=== PATIENT | female | born 1945 | race Hispanic/Latino ===

== ENCOUNTER 2017-06-18 14:27 | Outpatient (CLI) | payer BC | END 2017-06-18 14:28 | disposition home or self-care (01) | LOC: BICMAMMO 14:27 | PROVIDERS: ATTEND Family Medicine | DX: Z12.31 Encounter for screening mammogram for malignant neoplasm of breast (principal) | CPT/HCPCS: 77063; 77067 ==

== ENCOUNTER 2019-05-31 13:10 | Inpatient (IN) | payer MEDICARE ==
[~2019-05-31 13:10] MED LIST: Iopamidol 370 76% 100 ML VIAL ONE; Iopamidol 370 76% 50 ML VIAL FS ONE
[2019-05-31] MEDS ORDERED: Aspirin Chewable 81 MG TAB ONE (13:26)
[2019-05-31] MEDS ORDERED: Nitroglycerin 2% Ointment 1 INCH/1 GM Packet ONE (13:26)
[2019-05-31] MEDS ORDERED: Heparin 10,000 UNITS/1 ML VIAL ONE (13:34)
[2019-05-31] MEDS ORDERED: Adenosine 6 MG/2 ML VIAL ONE (13:34)
[2019-05-31] MEDS ORDERED: Verapamil 5 MG/2 ML VIAL ONE (13:34)
[2019-05-31] MEDS ORDERED: Nitroglycerin 100MG/250ML BOT 0 ML ONE (13:34)
[2019-05-31 13:36] LABS: #Eosinphils 0.1 thou/uL (0.0-0.7); #Lymphocytes 1.2 thou/uL (1.20-3.40); #Monocytes 0.4 thou/uL (0.11-0.59); #Neutrophils 5.1 thou/uL (1.40-6.50); %Basophils 0.4 % (0.0-1.0); %Eosinophils 1.1 % (0.0-10.0); %Lymphocytes 17.5 % (21.0-51.0); %Monocytes 6.1 % (0.0-10.0); %Neutrophils 74.8 % (42.0-75.0); Hemoglobin 11.9 g/dL (12.0-16.0); Mean Corpuscular HGB CONC 33.3 g/dL (32.0-36.0); Mean Corpuscular Hemoglobin 31.7 pg (27.0-31.0); Mean Platelet Volume 8.8 fL (7.4-10.4); Platelet Count 208 thou/uL (130-400); RBC Distribution Width 13.2 % (11.5-14.5); Red Blood Cell (RBC) Count 3.75 mill/uL (4.20-5.40); White Blood Cell (WBC) Count 6.8 thou/uL (4.8-10.8)
[2019-05-31] MEDS ORDERED: Ondansetron PF 4 MG/2 ML Vial ONE ×2 (13:36→14:35)
[2019-05-31 13:57] LABS: ALT (SGPT) 11 U/L (8-55); AST (SGOT) 23 U/L (5-34); Albumin 4.5 g/dL (3.4-4.8); Alkaline Phosphatase 75 U/L (40-110); Anion Gap 16 mmol/L (10-20); BUN (Urea Nitrogen) 18 mg/dL (9.8-20.1); Bilirubin, Total 0.5 mg/dL (0.2-1.2); CK (CPK) 85 U/L (29-168); Calc. Creatinine Clearance 0 mL/min (70-130); Carbon Dioxide 25 mmol/L (23-31); Chloride 102 mmol/L (98-107); Estimated GFR-MDRD 39; Globulin 4.1 g/dL (2.4-3.5); Glucose 132 mg/dL (83-110); Lipase 33 U/L (8-78); Potassium 3.6 mmol/L (3.5-5.1); Protein, Total 8.6 g/dL (6.0-8.3); Sodium 139 mmol/L (136-145)
[2019-05-31] MEDS ORDERED: Fentanyl 100 MCG/2 ML VIAL ONE (13:59)
[2019-05-31] MEDS ORDERED: Midazolam HCl 2 mg/2 ml Vial ONE (13:59)
[2019-05-31 14:19] LABS: CKMB 3.8 ng/mL (0-6.6)
[2019-05-31] MEDS ORDERED: Furosemide 40 MG/4 ML VIAL ONE (14:22)
[2019-05-31] MEDS ORDERED: Aggrastat 12.5 MG/250 ML 250 ML ONE (14:35)
[2019-05-31] MEDS ORDERED: Acetaminophen/Codeine 30-300mg Tablet PO PRN (14:53)
[2019-05-31] MEDS ORDERED: Milk Of Magnesia 30 ML UDCUP PO PRN (14:53)
[2019-05-31] MEDS ORDERED: Aggrastat 12.5 MG/250 ML 250 ML IVPB SCH ×2 (15:00)
[2019-05-31] MEDS ORDERED: Sodium Chloride 0.9% 1,000 ML IV SCH (15:00)
[2019-05-31] MEDS ORDERED: Heparin 10,000 UNITS/ 10 ML VIAL ONE (15:33)
[2019-05-31] MEDS ORDERED: Metoprolol Tartrate 5 MG/5 ML VIAL ONE (15:33)
[2019-05-31] MEDS ORDERED: Nitroglycerin 50 MG/250 ML BOT ONE (15:33)
--- NOTE | 2019-05-31 15:58 | CON ---
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 She was taken to the prosthetic lab technician by her chief digital media officer and is now in the ICU. She is on nitroglycerin drip . No chest pain right now. Has shortness of breath. Nonsmoker. Nondrinker. Daughter is at the bedside. PAST SURGICAL HISTORY: In 2013, underwent left hip arthroplasty. PAST MEDICAL HISTORY: Pertinent mainly for diabetes, arthritis, and hypertension. CHRONIC MEDICATIONS: 1. Tramadol. 2. Glucophage 1000 twice a day. 3. Hydrocodone. 4. . 5. Lipitor. ALLERGIES: NONE. SOCIAL HISTORY: Tobacco none. Presently retired. REVIEW OF SYSTEMS: Ten-point negative. PHYSICAL EXAMINATION: VITAL SIGNS: Temperature 98, pulse 70, respiratory rate 18, saturations 90% on 2 L, and blood pressure 190/51. CHEST: Decreased breath sounds. No wheezing. CARDIAC: Normal S1-S2. No gallops. ABDOMEN: No masses. DIAGNOSTIC DATA: Creatinine 1.32. BNP 471. I do not see any x-ray at baseline, one will be ordered. IMPRESSION: 1. Status post acute coronary syndrome, cardiac cath, status post stent. 2. Diabetes. 3. Azotemia. 4. Cholesterol. PLAN: Pulmonary will follow while in the ICU. Continue cardiac care as per chief digital media officer. Consultation note, 70 minutes, 50% direct patient care. Job ID: [id number]
[2019-05-31 16:57] LABS: Troponin I 1.928 ng/mL (< 0.028)
[2019-05-31] MEDS ORDERED: Carvedilol 3.125 MG TAB PO SCH (17:00)
[2019-05-31] MEDS ORDERED: Communication Order-Pharmacy FS ONE (17:34)
--- NOTE | 2019-05-31 17:57 | RAD ---
EXAM: CHEST ONE VIEW HISTORY: Preoperative evaluation prior to CABG. Chest pain. COMPARISON: None FINDINGS: Cardiac silhouette is magnified by projection and slight patient rotation. Pulmonary vasculature is w ithin normal limits. No consolidation or pleural fluid is seen. There is evidence of prior granulomatous disease. Vascular seen in thoracic aorta. Suggestion of a partially calcified mass over lying the left axillary region. This may represent a large partially calcified lymph node, this cannot be further evaluated on this exam. Degenerative changes are seen in the spine. No other findin gs. IMPRESSION: 1. Partially calcified mass left axillary region. Further evaluation with CT scan thorax is recommend ed. 2. No acute cardiopulmonary process.
[2019-05-31] MEDS ORDERED: Nitroglycerin 50 MG/250 ML BOT 250 ML IVPB SCH (18:15)
[2019-05-31] MEDS ORDERED: Atorvastatin Calcium 40 MG TAB PO SCH (21:00)
[2019-05-31] MEDS ORDERED: Docusate 100 MG CAP PO SCH (21:00)
--- NOTE | 2019-05-31 21:05 | CON ---
DATE OF CONSULTATION: 05/31/2019 REQUESTING PHYSICIAN: Dr. Infante. CHIEF COMPLAINT: Chest tightness and shortness of breath. HISTORY OF PRESENT ILLNESS: The patient is a 74-year-old diabetic woman who has been having some occasional episodes of dyspnea on exertion for about 2 or 3 months. Her primary care physician had arranged for an evaluation by Cardiology and in fact today, she had an appointment to see Dr. Infante when she realized that she felt profoundly tired, had chest tightness, shortness of breath, and some nausea. An EKG upon arrival in his office showed a left bundle branch block, which by report was a new finding for her and she was referred directly to the emergency room. She was a little tachycardic and was hypertensive. She had an elevated troponin and BNP, and she was given IV Lopressor, IV nitroglycerin, aspirin, and Zofran in the emergency room and in the brick and blocker aid labor, was given IV Lasix. Her cardiac catheterization demonstrated severe 3-vessel coronary artery disease with decreased LV function. She had some chest discomfort during the catheterization, but she now feels much better and her shortness of breath has resolved. PAST MEDICAL HISTORY: Significant for her hypertension and diabetes. HOME MEDICATIONS: 1. Metformin 1000 mg b.i.d. 2. Lipitor 10 mg at bedtime. 3. Adult aspirin a day. 4. Bisoprolol 5/hydrochlorothiazide 6.25 one p.o. b.i.d. 5. Lactaid and p.r.n. meloxicam and [place] for arthritis that primarily affects her fingers. Currently, she is on: 1. Baby aspirin. 2. Lipitor 40 mg at bedtime. 3. Coreg 3.125 mg b.i.d. 4. Aggrastat drip. 5. Nitroglycerin drip ALLERGIES: SHE DENIES ANY MEDICAL OR FOOD ALLERGIES. FAMILY HISTORY: Significant for multiple first-degree family members with coronary artery disease. She does not recall the age at which her father of heart attack, but does remember that she was a young woman with small children at that time. Her mother of heart disease. She has a sister who recently of heart disease. REVIEW OF SYSTEMS: Negative for any transient eye, speech, facial, or extremity symptoms suggestive of TIA. Negative for any antecedent shortness of breath. Negative for any PND or dependent edema. Positive for some burning and tingling in the soles of her feet. Positive for crampy pain in her calves when she walks. 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 She has never smoked. PHYSICAL EXAMINATION: GENERAL: She is a thin woman, in no distress. VITAL SIGNS: Weight is 123.5 pounds. In the emergency room, her heart rate was 111, and blood pressure 170/100. Currently, her heart rate is 83 and blood pressure 158/55. 2 L nasal cannula O2 saturations of 95% to 100%. HEENT: She has no xanthelasma. NECK: No JVD. She has soft bilateral carotid bruits. HEART: She has regular rate and rhythm without any murmur or gallop. ABDOMEN: Soft and nontender without any masses or bruits. EXTREMITIES: She has palpable but somewhat difficult to appreciate radial pulses bilaterally. She has some deformity of fingers on either hand consistent with arthritis. She has an arterial sheath in place in the right groin. Her left femoral pulse is easily palpable and there is no associated bruit. I was not able to palpate popliteal pulses on either side or posterior tibial pulses on either side. The right dorsalis pedis pulse is palpable, but faint. Her left dorsalis pedis is not palpable. Capillary refill in both feet is around 1.5 seconds. She has some spider type varicosities around the knee, but no bulging varicosities. She has no clubbing, cyanosis, or edema. NEUROLOGIC: Grossly nonfocal. LABORATORY DATA: White count 6.8, hemoglobin 11.9, hematocrit 35.6, platelets 208,000. Sodium 139, potassium 3.6, chloride 102, CO2 of 25, glucose 132, BUN 18, creatinine 1.32 with an estimated GFR of 39, calcium is 10, protein is 8.6, albumin 4.5, bilirubin 0.5, alkaline phosphatase 75, AST 23, ALT 11. Troponin was 0.067 and BNP was 471. EKG shows a left bundle branch block. Her chest x-ray is pending. Her cardiac catheterization shows a right-dominant system with an occluded right coronary that fills from left-sided collaterals with posterior descending and posterolateral branches appearing freely communicate with the distal right coronary. After passing a wire and attempting to angioplasty the right coronary from an antegrade route, there was competitive flow appreciated in the distal right system. The left main is normal. She has 80 or 90% lesion in the proximal LAD that extends just beyond the first septal dairy processing supervisor. The remainder of the LAD appears to be reasonably free of disease. She has lesion in the proximal circumflex with a modest size OM1 and reasonably good-sized OM2 appearing to freely communicate, that circumflex lesion is somewhat hazy, appears to be about 60% to 70% in most shots where it is visualized. Her anterior wall is essentially akinetic. LVEF is probably on the order of around 30% or 35%. LV pressure was 169/11 with an EDP of 29 and aortic pressure on pullback was 167/72 with a mean of 114. IMPRESSION AND RECOMMENDATIONS: Severe three-vessel coronary artery disease with an occluded right coronary stenotic circumflex and a high-grade proximal LAD lesion. She is currently stable. We will plan on coronary artery bypass grafting in the morning. We will turn her Aggrastat off tonight. She is to continue with gentle hydration because of some mild renal insufficiency. We will defer evaluating her carotid bruits for the time being. Job ID: [id number] MTDD
[2019-05-31 21:22] LABS: Hemoglobin A1c 5.8 % (4.0-6.0)
[2019-05-31 21:49] LABS: CKMB 41.4 ng/mL (0-6.6); Troponin I 9.118 ng/mL (< 0.028)
[2019-06-01] MEDS ORDERED: Milk Of Magnesia 30 ML UDCUP PO PRN (02:43)
[2019-06-01] MEDS: Acetaminophen/Codeine 30-300mg Tablet PO PRN ×2 (02:44→08:23)
[2019-06-01 04:15] LABS: #Eosinphils 0.1 thou/uL (0.0-0.7); #Lymphocytes 1.3 thou/uL (1.20-3.40); #Monocytes 0.8 thou/uL (0.11-0.59); #Neutrophils 4.7 thou/uL (1.40-6.50); %Basophils 0.3 % (0.0-1.0); %Eosinophils 1.2 % (0.0-10.0); %Lymphocytes 19.3 % (21.0-51.0); %Monocytes 11.3 % (0.0-10.0); %Neutrophils 67.9 % (42.0-75.0); Hemoglobin 9.6 g/dL (12.0-16.0); Mean Corpuscular HGB CONC 33.5 g/dL (32.0-36.0); Mean Corpuscular Hemoglobin 31.7 pg (27.0-31.0); Mean Corpuscular Volume 94.6 fL (78.0-98.0); Mean Platelet Volume 8.2 fL (7.4-10.4); Platelet Count 176 thou/uL (130-400); RBC Distribution Width 13.2 % (11.5-14.5); Red Blood Cell (RBC) Count 3.01 mill/uL (4.20-5.40); White Blood Cell (WBC) Count 6.9 thou/uL (4.8-10.8)
[2019-06-01 04:36] LABS: ALT (SGPT) 12 U/L (8-55); AST (SGOT) 55 U/L (5-34); Albumin 3.6 g/dL (3.4-4.8); Alkaline Phosphatase 58 U/L (40-110); Anion Gap 11 mmol/L (10-20); BUN (Urea Nitrogen) 15 mg/dL (9.8-20.1); Bilirubin, Total 0.7 mg/dL (0.2-1.2); Calc. Creatinine Clearance 35 mL/min (70-130); Calcium 8.8 mg/dL (7.8-10.44); Carbon Dioxide 26 mmol/L (23-31); Chloride 105 mmol/L (98-107); Estimated GFR-MDRD 46; Globulin 3.3 g/dL (2.4-3.5); Glucose 120 mg/dL (83-110); Potassium 4.1 mmol/L (3.5-5.1); Protein, Total 6.9 g/dL (6.0-8.3); Sodium 138 mmol/L (136-145)
[2019-06-01] MEDS ORDERED: Albumin 5% 0 ML ONE (06:34)
--- NOTE | 2019-06-01 06:45 | RAD ---
CHEST 1 VIEW: Date: 06/01/2019 INDICATION: History of myocardial infarction. COMPARISON: Prior exam dated 05/31/2019. FINDINGS: Calcifications of the soft tissues of left axial region stable appearing. Heart size upper limits of normal. Lungs are clear. No pleural effusion evident. No pneumothorax demonstrated. No acute osseous abnormality noted. IMPRESSION: Stable. POS: BH
[2019-06-01] MEDS ORDERED: Heparin 5,000 UNITS/ML VIAL ONE ×2 (06:58→11:08)
[2019-06-01] MEDS ORDERED: Papaverine 60 MG/2 ML VIAL ONE ×2 (06:58→11:08)
[2019-06-01] MEDS ORDERED: Prevnar 13-Val Conj/PF 0.5 ML SYRINGE IM ONE (08:00)
[2019-06-01] MEDS: Carvedilol 3.125 MG TAB PO SCH ×2 (08:18→19:43)
--- NOTE | 2019-06-01 08:20 | PRG ---
DATE OF SERVICE: 06/01/2019 SUBJECTIVE: This morning, she is in the ICU. No shortness of breath. No pain. X-ray was clear. OBJECTIVE: VITAL SIGNS: Saturations are 100% on room air, pulse 72, blood pressure , and respiratory rate 18. CHEST: No wheezing or crackles. CARDIAC: Normal S1 and S2. No gallops. ABDOMEN: No masses. LABORATORY DATA: H and H are 9 and 28, platelet count normal. Lytes are normal. Creatinine 1.16. ASSESSMENT: 1. Status post myocardial infarction, stent. 2. Diabetes. PLAN: This patient is here for surgery today. Pulmonary will follow while in the ICU. Job ID: [id number]
[2019-06-01] MEDS ORDERED: FLU VACC TS2019-20(65YR UP)/PF 180 MCG/0.5 ML SYRINGE IM ONE (09:00)
[2019-06-01] MEDS ORDERED: Aspirin Chewable 81 MG TAB PO SCH ×2 (09:00)
--- NOTE | 2019-06-01 09:00 | PRG ---
DATE OF SERVICE: 06/01/2019 SUBJECTIVE: Ms. Kwan is doing well. She has not had any recurrent episodes of chest pain since the procedure. Her troponin did increase to 9 with a CK-MB of 45. OBJECTIVE: VITAL SIGNS: Blood pressure 149/66, pulse 85, respirations 20. LUNGS: Clear to auscultation. HEART: Regular rate and rhythm. ABDOMEN: Soft, nontender, nondistended. EXTREMITIES: No edema. PERTINENT LABORATORY DATA: Hemoglobin 9.6. Peak MB of 41. Peak troponin 9. IMPRESSION: 1. Severe coronary artery disease. 2. New left bundle-branch block. 3. Diabetes mellitus. RECOMMENDATIONS: It is unknown whether Ms. Kwan is elevated. Troponin is secondary to an acute insult versus recent PTCA only to a chronic occlusion. I do not feel this was an acute event based on the findings. Given the above, she will proceed with the CV surgery today. Job ID: [id number]
[2019-06-01] MEDS ORDERED: Norepinephrine 4 MG/4 ML VIAL ONE (09:14)
[2019-06-01] MEDS ORDERED: Fentanyl 100 MCG/2 ML VIAL ONE (09:15)
[2019-06-01] MEDS ORDERED: Nitroglycerin 50 MG/250 ML BOT 250 ML ONE (09:15)
[2019-06-01] MEDS ORDERED: CEFAZOLIN 2 GM in Premix Bag 1 BAG IVPB SCH (09:30)
[2019-06-01] MEDS ORDERED: Heparin 10,000 UNITS/1 ML VIAL 30,000 UNITS in Sodium Chloride 0.9% 1,000 ML FS SCH (09:45)
[2019-06-01] MEDS ORDERED: Sodium Chloride 0.9% 10 ML ONE (09:59)
[2019-06-01] MEDS ORDERED: Ketamine 50 MG/ML (10ML VIAL) ONE (10:12)
[2019-06-01] MEDS ORDERED: Midazolam HCl 2 mg/2 ml Vial ONE (10:12)
[2019-06-01] MEDS ORDERED: Insulin Regular 300 UNITS/3 ML VIAL ONE (10:43)
[2019-06-01] MEDS ORDERED: Calcium Chloride 1 GM/10 ML Abboject SYRINGE ONE (11:08)
[2019-06-01] MEDS ORDERED: Aminocaproic Acid 5 GM/20 ML VIAL ONE (11:08)
[2019-06-01] MEDS ORDERED: Cardioplegic Soln 1,000 ML BAG ONE (11:08)
[2019-06-01] MEDS ORDERED: Heparin 30,000 units/30 ml VIAL ONE (11:08)
[2019-06-01] MEDS ORDERED: PHENYLEPHRINE-NS 100 MCG/ML 10 ML SYRINGE ONE ×3 (11:08→16:44)
[2019-06-01] MEDS ORDERED: Lidocaine 2% PF 5 ML VIAL ONE (11:08)
[2019-06-01] MEDS ORDERED: Potassium Chloride 60 MEQ/30 ML VIAL ONE (11:08)
[2019-06-01] MEDS ORDERED: Sodium Bicarb 50 MEQ/50 ML Abboject 8.4% SYRINGE ONE (11:08)
[2019-06-01] MEDS ORDERED: Thrombin 5000 UNITS/5 ML VIAL ONE (11:08)
[2019-06-01] MEDS ORDERED: PROPOFOL 200 MG/20 ML VIAL ONE (11:08)
[2019-06-01] MEDS ORDERED: Dexamethasone 20 MG/5 ML VIAL ONE (11:08)
[2019-06-01] MEDS ORDERED: Rocuronium Bromide 10 MG/ML (10ML VIAL) ONE (11:08)
[2019-06-01] MEDS ORDERED: Albumin 25% 25 GM/100 ML BOT ONE (11:08)
[2019-06-01] MEDS ORDERED: Vecuronium 10 MG VIAL ONE (11:08)
[2019-06-01] MEDS ORDERED: Magnesium Sulfate 1 GM/2 ML VIAL ONE (11:08)
[2019-06-01] MEDS ORDERED: Lidocaine 1% PF 5 ML VIAL ONE ×2 (11:08)
[2019-06-01] MEDS ORDERED: Protamine Sulfate 250 MG/25 ML VIAL ONE (11:08)
[2019-06-01] MEDS ORDERED: Milrinone 10 MG/10 ML VIAL ONE (15:18)
[2019-06-01] MEDS ORDERED: Ondansetron PF 4 MG/2 ML Vial IVP PRN (17:06)
[2019-06-01] MEDS ORDERED: Acetaminophen 325 MG TAB PO PRN (17:06)
[2019-06-01] MEDS ORDERED: niCARdipine 25 MG in Sodium Chloride 0.9% 250 ML 240 ML IVPB PRN (17:06)
[2019-06-01] MEDS ORDERED: Hetastarch 6% 500 ML 500 ML IVPB PRN (17:06)
[2019-06-01] MEDS ORDERED: Guaifenesin DM 100-10/5 ML UDCUP PO PRN (17:06)
[2019-06-01] MEDS ORDERED: Mag-Al 1200 mg/1200 mg/30 ML UDCUP PO PRN (17:06)
[2019-06-01] MEDS ORDERED: Bisacodyl 10 MG SUPP PR PRN (17:06)
[2019-06-01] MEDS ORDERED: Nitroglycerin 50 MG/250 ML BOT 250 ML IVPB PRN (17:06)
[2019-06-01] MEDS ORDERED: Morphine 2 MG/ML SYRINGE SLOW IVP PRN (17:06)
[2019-06-01] MEDS ORDERED: Promethazine HCl 25 MG/ML VIAL IM PRN (17:06)
[2019-06-01] MEDS ORDERED: Potassium Chloride 20 MEQ/100 ML PREMIX BAG IVPB PRN (17:06)
[2019-06-01] MEDS ORDERED: Post-Op Insulin Drip Protocol IVPB ONE (17:06)
[2019-06-01] MEDS ORDERED: Bisacodyl 5 MG TAB PO PRN (17:06)
[2019-06-01] MEDS ORDERED: Norepinephrine 8 MG/0.9% NS 250 ML IVPB PRN (17:06)
[2019-06-01] MEDS ORDERED: Fentanyl 100 MCG/2 ML VIAL SLOW IVP PRN ×2 (17:06)
[2019-06-01 17:08] LABS: Actual Bicarbonate (HCO3a) 19.4 mEq/L (22-28); Base Excess (BEa) -2.8 mEq/L (-2.0 to +3.0); Calcium, Ionized 1.11 mmol/L (1.12-1.30); Carboxyhemoglobin (COHb) 0.5 gm% (0.0-3.0); O2 Tension (PaO2) 218.9 mmHg (> 70.0); Potassium - ABG Lab 3.95 mmol/L (3.70-5.30); pH, Arterial 7.49 (7.35-7.45)
[2019-06-01] MEDS ORDERED: DOPamine 400 MG/D5W 250 ML 250 ML ONE (17:09)
[2019-06-01] MEDS ORDERED: Dextrose 5% in Water 1,000 ML IV PRN (17:15)
[2019-06-01] MEDS ORDERED: HUMULIN R 100 UNITS in Sodium Chloride 0.9% 100 ML IVPB SCH (17:15)
[2019-06-01] MEDS ORDERED: Insulin Regular 300 UNITS/3 ML VIAL SC PRN (17:15)
[2019-06-01] MEDS ORDERED: Dextrose 50% Abboject 50 ML SYRINGE SLOW IVP PRN (17:15)
[2019-06-01 17:21] LABS: INR-International Normal Ratio 1.5; PTT 35.4 SEC (22.9-36.1); Prothrombin Time 17.8 SEC (12.0-14.7)
[2019-06-01 17:22] LABS: CO2 Tension 25.9 mmHg (35.0-45.0)
[2019-06-01 17:23] LABS: ALV-art Gradient 176.525 (0-20); Puncture Site LINE
[2019-06-01] MEDS: Sodium Chloride 0.9% 1,000 ML IV SCH (17:30)
[2019-06-01 17:38] LABS: Anion Gap 12 mmol/L (10-20); BUN (Urea Nitrogen) 11 mg/dL (9.8-20.1); Calc. Creatinine Clearance 49 mL/min (70-130); Calcium 7.7 mg/dL (7.8-10.44); Carbon Dioxide 19 mmol/L (23-31); Chloride 112 mmol/L (98-107); Estimated GFR-MDRD 67; Glucose 125 mg/dL (83-110); Potassium 4.1 mmol/L (3.5-5.1); Sodium 139 mmol/L (136-145)
--- NOTE | 2019-06-01 17:38 | RAD ---
EXAM: CHEST ONE VIEW HISTORY: Post open heart surgery. COMPARISON: 06/01/2019 FINDINGS: Endotracheal tube is noted in place with tip overlying the T4 vertebral body. Right subclavian centra l venous catheter is noted in place with tip overlying region of the right atrium. Mediastinal drains are noted in place. Multiple hall monitor leads overlie the chest. Median sternotomy wires are now seen. The cardiac silhouette and pulmonary vasculature are within normal limits. The lungs are clear. No pl eural effusion or pneumothorax is seen on this exam. The partially calcified masslike structure overlying the left axillary region is again identified. No other interval change from prior study IMPRESSION: 1. Partially calcified masslike structure left axilla. This could potentially represent a large calci fied lymph node versus other calcified mass. Nonemergent CT thorax is recommended for further evaluation. 2. Lines and tubes in place with postsurgical changes related to recent CABG.
[2019-06-01 17:44] LABS: #Eosinphils 0.1 thou/uL (0.0-0.7); #Lymphocytes 0.6 thou/uL (1.20-3.40); #Monocytes 0.6 thou/uL (0.11-0.59); #Neutrophils 7.3 thou/uL (1.40-6.50); %Basophils 0.2 % (0.0-1.0); %Lymphocytes 7.1 % (21.0-51.0); %Monocytes 6.9 % (0.0-10.0); %Neutrophils 84.8 % (42.0-75.0); Hemoglobin 10.7 g/dL (12.0-16.0); Mean Corpuscular HGB CONC 34.7 g/dL (32.0-36.0); Mean Corpuscular Hemoglobin 32.4 pg (27.0-31.0); Mean Corpuscular Volume 93.2 fL (78.0-98.0); Mean Platelet Volume 9.2 fL (7.4-10.4); Platelet Count 84 thou/uL (130-400); Platelet Morphology Comment Appears Decreased; RBC Distribution Width 13.5 % (11.5-14.5); RBC Morphology Normal; Red Blood Cell (RBC) Count 3.32 mill/uL (4.20-5.40); White Blood Cell (WBC) Count 8.6 thou/uL (4.8-10.8)
[2019-06-01] MEDS: hydrALAZINE 20 MG/ML VIAL SLOW IVP PRN (20:36)
--- NOTE | 2019-06-01 20:47 | OP ---
DATE OF PROCEDURE: 06/01/2019 PROCEDURES PERFORMED: Coronary artery bypass grafting x3 with left internal mammary artery to the distal left anterior descending artery and reverse greater saphenous vein graft from aorta to the second obtuse marginal and from the aorta to the right coronary artery. PREOPERATIVE DIAGNOSIS: Coronary artery disease with decreased left ventricular function, status post non-ST elevation myocardial infarction. POSTOPERATIVE DIAGNOSIS: Coronary artery disease with decreased left ventricular function, status post non-ST elevation myocardial infarction. TELEVISION CABINET FINISHER: Sky Clark MD ANESTHESIA: General endotracheal anesthesia. INDICATIONS FOR PROCEDURE: The patient is a 74-year-old diabetic woman with recent onset of dyspnea on exertion, who presented with chest tightness and shortness of breath as well as nausea. She had a new left bundle branch block and mildly elevated troponin on initial blood draw. Cardiac catheterization demonstrated severe 3-vessel coronary artery disease with decreased LV function. She is now taken to the operating room for surgical revascularization. FINDINGS: Pump time 75 minutes. Cross-clamp time 34 minutes. Good quality JESÚS with good flow. Small thin-walled saphenous vein requiring bilateral lower extremity harvest. Distal LAD was about a 1.5 mm vessel. The OM2 was about 2 to 2.5 mm. The RCA was about 2.5 mm. The bypass circuit was primed with 2 units of packed red blood cells due to pre-existing anemia. The pericardium was closed. DESCRIPTION OF PROCEDURE: After informed consent was obtained, the patient was taken to the operating room, placed in supine position on the operating table. After the induction of general anesthesia, the patient's greater saphenous vein in both lower extremities was ultrasonographically mapped and marked. She was placed in Trendelenburg, and right upper chest was prepped and draped in sterile fashion. A triple-lumen central line kit was used to place a right subclavian central line by the Seldinger technique. All 3 ports aspirated and flushed easily. The line was secured with suture and the patient's torso, groins, and lower extremities were prepped and draped in sterile fashion excluding the right groin arterial sheath from the field. An incision was made sharply over the medial aspect of the distal right thigh. Exploration of that wound failed to identify the saphenous vein and it was opted to abandon an endoscopic technique. An incision was made about a handbreadth below the groin on the medial thigh. The saphenous vein was exposed there and appeared to be reasonably good quality vessel. It was then harvested by a skin bridge technique down to just below the most superior incision. The vein seemed small, but much of the vein seemed to be somewhat spastic upon completion of its harvest and preparation for use as a graft. However, it could be seen that most of the vein not only was small, it was very thin-walled and very poorly distensible. The vein from the proximal thigh was roughly 3 mm in size, but not far below that most proximal incision. It did split with even the larger vein only being about 1.5 to 2 mm. An incision was then made on the medial aspect of the upper left thigh. The saphenous vein was exposed there and harvested to the mid thigh and prepared for use as a graft and in this manner to adequately sized an adequate quality segments of vein to use for grafting were obtained. The harvest sites were inspected for hemostasis and closed in layers, the subcutaneous and subcuticular Vicryl. A median sternotomy was performed. The left internal mammary artery was exposed and harvested as a pedicle from the level of the xiphoid to the level of the subclavian vein through an extrapleural exposure. The patient was heparinized. The mammary was ligated and divided distally. There was good flow through the mammary and it dilated nicely with instillation of papaverine solution. The mammary bed was inspected for hemostasis. The medial reflections of the left pleura were mobilized and the mammary bed was inspected for hemostasis. The JESÚS retractor was placed with a Grubbs retractor. The pericardium was opened and marsupialized. There was rather short intrapericardial ascending aorta. The pericardial reflection was taken down. The exposed aorta palpably was soft. A double concentric pursestring of 2-0 Ethibond was placed in the ascending aorta at the base of the arch and a single pursestring was placed in the right atrial appendage. Aortic and venous cannulae were inserted and secured by their pursestrings. Cardiopulmonary bypass was instituted and the patient was systemically cooled. The heart was examined and the vessel to be bypassed was identified. A longitudinal slit was made in the pericardium anterior to the left phrenic nerve, through which, the mammary could be passed. The plane between the aorta and the pulmonary artery was developed. An aortic cross-clamp was applied and cardioplegia was administered through an aortic root needle. When arrest has been achieved, attention was turned to the distal right coronary system. The right coronary was opened at the crux and a saphenous vein was reversed and anastomosed there end-to-side with running 6-0 Prolene suture. The anastomosis was tested by flushing cold cardioplegia down the graft. Attention was then turned to the circumflex system. The OM2 was opened and grafted in a similar fashion. The LAD was then opened, where it emerged on the epicardial surface distally. The mammary was spatulated and anastomosed there end-to-side with running 7-0 Prolene and tacked to the epicardium. The aortic cross-clamp was replaced with a partial occluding clamp and aortotomy was made in the ascending aorta with a scalpel and punch. The right coronary artery graft was anastomosed to the more proximal aortotomy and the OM graft was anastomosed to the more distal aortotomy. A partial occluding clamp was removed because of relatively thin-walled nature of even the best quality vein that had been used for grafting. It was opted to not de-aired the grafts. The bulldogs were removed from them. The anastomoses were inspected for hemostasis and the proximal vein graft anastomoses were marked with small hemoclips. A posterior pericardial drain was brought out through a separate incision and secured with suture. Right atrial and right ventricular temporary epicardial pacing wires were placed. The patient had an underlying sinus bradycardia. AV sequential pacing was begun and the patient was loaded with Primacor with the use of volume and Levophed. The patient was then from cardiopulmonary bypass. The aortic and venous cannulae were removed and the pursestring secured. Protamine was administered. When hemostasis was adequate, an anterior mediastinal drain was placed. The pericardium was easily closed over with running Vicryl. The cut surfaces of the sternum were treated with vancomycin paste and platelet-rich GPS. The sternum was then reapproximated with #7 stainless steel wires. The soft tissues were irrigated and treated with platelet-poor GPS. The fascia was closed over the wires with running #1 Vicryl. The subcutaneous tissue was reapproximated with 2-0 Vicryl. The skin was closed with running 4-0 Vicryl subcuticular suture. The wounds were dressed. The patient was taken to the intensive care unit in stable condition. Job ID: [id number]
[2019-06-01] MEDS ORDERED: Famotidine/PF 20 mg/2ml Vial SLOW IVP SCH (21:00)
[2019-06-01] MEDS: Atorvastatin Calcium 40 MG TAB PO SCH (21:57)
[2019-06-01] MEDS: Docusate 100 MG CAP PO SCH (22:01)
[2019-06-01 22:37] LABS: Hemoglobin 10.6 g/dL (12.0-16.0)
[2019-06-01 22:55] LABS: Potassium 3.7 mmol/L (3.5-5.1)
[2019-06-02 03:41] LABS: #Lymphocytes 0.5 thou/uL (1.20-3.40); #Monocytes 1.1 thou/uL (0.11-0.59); #Neutrophils 6.9 thou/uL (1.40-6.50); %Basophils 0.1 % (0.0-1.0); %Eosinophils 0.1 % (0.0-10.0); %Lymphocytes 5.7 % (21.0-51.0); %Monocytes 12.6 % (0.0-10.0); %Neutrophils 81.4 % (42.0-75.0); Hemoglobin 10.7 g/dL (12.0-16.0); Mean Corpuscular HGB CONC 33.8 g/dL (32.0-36.0); Mean Corpuscular Hemoglobin 31.8 pg (27.0-31.0); Mean Platelet Volume 9.8 fL (7.4-10.4); Platelet Count 90 thou/uL (130-400); RBC Distribution Width 13.9 % (11.5-14.5); Red Blood Cell (RBC) Count 3.36 mill/uL (4.20-5.40); White Blood Cell (WBC) Count 8.5 thou/uL (4.8-10.8)
[2019-06-02 04:02] LABS: Anion Gap 12 mmol/L (10-20); BUN (Urea Nitrogen) 15 mg/dL (9.8-20.1); Calc. Creatinine Clearance 43 mL/min (70-130); Calcium 8.3 mg/dL (7.8-10.44); Carbon Dioxide 21 mmol/L (23-31); Chloride 113 mmol/L (98-107); Estimated GFR-MDRD 48; Glucose 115 mg/dL (83-110); Sodium 142 mmol/L (136-145)
[2019-06-02] MEDS: Sodium Chloride 0.9% 1,000 ML IV SCH ×2 (06:23→21:39)
[2019-06-02] MEDS ORDERED: Dextrose 50% Abboject 50 ML SYRINGE SLOW IVP PRN (07:22)
[2019-06-02] MEDS ORDERED: Dextrose 5% in Water 1,000 ML IV PRN (07:22)
--- NOTE | 2019-06-02 07:49 | RAD ---
Chest one view HISTORY: Heart surgery. Follow-up. COMPARISON: 06/01/2019. FINDINGS: Cardiac silhouette and pulmonary vasculature are unremarkable. Mediastinum is midline with aortic calcification. Lines and tubes are unchanged in position. Mediastinal drains overlie the lower mediastinum. Mild atelectasis left posterior lung base. No evidence of pneumothorax. surveillance system monitor leads overlie the chest. IMPRESSION: Stable postoperative appearance of the chest.
[2019-06-02] MEDS: Furosemide 40 MG/4 ML VIAL SLOW IVP SCH ×2 (07:57→14:59)
[2019-06-02] MEDS: Docusate 100 MG CAP PO SCH ×2 (08:00→21:39)
[2019-06-02] MEDS: Aspirin Chewable 81 MG TAB PO SCH (08:00)
--- NOTE | 2019-06-02 08:29 | PRG ---
DATE OF SERVICE: 06/02/2019 SUBJECTIVE: This morning, she is on the vent post CABG. Awake, responsive. Denies any pain or discomfort. OBJECTIVE: VITAL SIGNS: Temperature 97, blood pressure 140/80, sats 100%, respirations 18. CHEST: Decreased breath sounds. No wheezing. CARDIAC: Normal S1 and S2. No gallops. ABDOMEN: Soft. NEUROLOGIC: She is awake, alert, responsive, moves all 4 extremities. DIAGNOSTIC DATA: Chest x-ray shows slight cephalization, but no obvious infiltrate. LABORATORY DATA: Lab shows white count 8000, platelet count is 90,000. Lytes are normal. Glucose is slightly elevated. IMPRESSION: 1. Status post coronary artery bypass graft. 2. Diabetes. 3. Mild azotemia. PLAN: Wean and extubate comfort care, supportive care, PT. We will follow. One-half hour of critical time. Job ID: [id number]
[2019-06-02] MEDS: hydrALAZINE 20 MG/ML VIAL SLOW IVP PRN (15:50)
[2019-06-02] MEDS ORDERED: Lisinopril 5 MG TAB PO SCH (16:15)
[2019-06-02] MEDS: HYDROcodone/Acetaminophen 5/325 mg Tablet PO PRN (16:52)
[2019-06-02] MEDS: Carvedilol 3.125 MG TAB PO SCH (16:54)
[2019-06-02] MEDS ORDERED: Famotidine/PF 20 mg/2ml Vial SLOW IVP SCH (21:00)
[2019-06-02] MEDS: Atorvastatin Calcium 40 MG TAB PO SCH (21:39)
[2019-06-03 03:57] LABS: #Monocytes 1.3 thou/uL (0.11-0.59); #Neutrophils 7.7 thou/uL (1.40-6.50); %Basophils 0.3 % (0.0-1.0); %Eosinophils 0.1 % (0.0-10.0); %Lymphocytes 10.2 % (21.0-51.0); %Monocytes 13.2 % (0.0-10.0); %Neutrophils 76.2 % (42.0-75.0); Hemoglobin 9.6 g/dL (12.0-16.0); Mean Corpuscular HGB CONC 33.2 g/dL (32.0-36.0); Mean Corpuscular Hemoglobin 31.6 pg (27.0-31.0); Mean Platelet Volume 10.5 fL (7.4-10.4); Platelet Count 101 thou/uL (130-400); RBC Distribution Width 14.2 % (11.5-14.5); Red Blood Cell (RBC) Count 3.04 mill/uL (4.20-5.40); White Blood Cell (WBC) Count 10.1 thou/uL (4.8-10.8)
[2019-06-03 04:16] LABS: Anion Gap 12 mmol/L (10-20); BUN (Urea Nitrogen) 24 mg/dL (9.8-20.1); Calc. Creatinine Clearance 28 mL/min (70-130); Calcium 8.2 mg/dL (7.8-10.44); Carbon Dioxide 24 mmol/L (23-31); Chloride 109 mmol/L (98-107); Estimated GFR-MDRD 30; Glucose 154 mg/dL (83-110); Potassium 3.9 mmol/L (3.5-5.1); Sodium 141 mmol/L (136-145)
--- NOTE | 2019-06-03 07:47 | RAD ---
EXAM: Portable chest PROVIDED CLINICAL HISTORY: Post open heart COMPARISON: 06/02/2019 FINDINGS: Interval extubation. Additional significant interval change with respect to the prior examination is not apparent. IMPRESSION: As above.
[2019-06-03] MEDS: Aspirin Chewable 81 MG TAB PO SCH (08:22)
[2019-06-03] MEDS: Carvedilol 3.125 MG TAB PO SCH (08:22)
[2019-06-03] MEDS: Lisinopril 5 MG TAB PO SCH (08:22)
[2019-06-03] MEDS: Docusate 100 MG CAP PO SCH ×2 (08:22→19:43)
[2019-06-03] MEDS: Sodium Chloride 0.9% 1,000 ML IV SCH (08:23)
--- NOTE | 2019-06-03 08:26 | PRG ---
DATE OF SERVICE: 06/03/2019 SUBJECTIVE: This morning, she is lethargic, but arousable. No pain or shortness of breath. OBJECTIVE: VITAL SIGNS: Sats are 95% on 2 L, pulse 67, respirations 18, and blood pressure is 119/60. CHEST: Decreased breath sounds. No wheezing. CARDIAC: Normal S1 and S2. No gallops. ABDOMEN: No masses. DIAGNOSTIC STUDIES: Creatinine 1.67. X-ray shows a left-sided retrocardiac density effusion. White count 10,000, platelet count is 101. ASSESSMENT: 1. Status post coronary artery bypass graft. 2. Azotemia. 3. Diabetes. PLAN: Continue aggressive PT, supportive care. Pulmonary is going to follow while in the ICU. Job ID: [id number]
[2019-06-03] MEDS: HYDROcodone/Acetaminophen 5/325 mg Tablet PO PRN (13:47)
[2019-06-03] MEDS ORDERED: Bisacodyl 10 MG SUPP PR PRN (15:48)
[2019-06-03] MEDS ORDERED: Bisacodyl 5 MG TAB PO PRN (15:48)
[2019-06-03] MEDS ORDERED: Mag-Al 1200 mg/1200 mg/30 ML UDCUP PO PRN (15:48)
[2019-06-03] MEDS ORDERED: Zolpidem Tartrate 5 MG TAB PO PRN (15:48)
[2019-06-03] MEDS ORDERED: Nitroglycerin 0.4 MG TAB (25 Tab Bottle) SL PRN (15:48)
[2019-06-03] MEDS ORDERED: Artificial Tears 18 DROP/0.9 ML EA EYE PRN (15:48)
[2019-06-03] MEDS ORDERED: Mineral Oil ENEMA PR PRN (15:48)
[2019-06-03] MEDS ORDERED: Guaifenesin DM 100-10/5 ML UDCUP PO PRN (15:48)
[2019-06-03] MEDS ORDERED: diphenhydrAMINE 25 MG CAP PO PRN (15:48)
--- NOTE | 2019-06-03 15:53 | PDOC.CPN ---
- Subjective Date: 06/03/19 Time: 15:51 Interval history: Doing well. No new issues. - Review of Systems General: denies: fever/chills, weight/appetite/sleep changes, night sweats, fatigue Respiratory: denies: cough, congestion, shortness of breath, exercise intolerance Cardiovascular: reports: chest pain Gastrointestinal: denies: nausea, vomiting, diarrhea, constipation, abd pain, GI bleeding Musculoskeletal: reports: pain. denies: tenderness, stiffness, swelling, arthritis/arthralgias Neurological: denies: numbness, syncope, seizure, weakness - Objective Allergies/Adverse Reactions: Allergies Allergy/AdvReac Type Severity Reaction Status Date / Time No Known Allergies Allergy Unverified 04/13/13 11:53 Visit Medications: Current Medications Acetaminophen (Tylenol) 650 mg PO Q6H PRN PRN Reason: Headache/Fever Or Mild Pain Hydrocodone Bitart/Acetaminophen ([place] 5/325) 1 tab PO Q4H PRN PRN Reason: Moderate Pain (4-6) Last Admin: 06/03/19 13:47 Dose: 1 tab Hydrocodone Bitart/Acetaminophen ([place] 5/325) 2 tab PO Q4H PRN PRN Reason: Severe Pain (7-10) Al Hydroxide/Mg Hydroxide (Maalox) 30 ml PO Q4H PRN PRN Reason: Indigestion Al Hydroxide/Mg Hydroxide (Maalox) 30 ml PO Q4H PRN PRN Reason: Indigestion Albuterol/Ipratropium (Duoneb) 3 ml NEB [id number] PRN PRN Reason: SHORTNESS OF BREATH Artificial Tears (Tears Naturale) 0 drop EA EYE PRN PRN PRN Reason: Dry Eyes Aspirin (Aspirin Chewable) 81 mg PO DAILY [facility] Last Admin: 06/03/19 08:22 Dose: 81 mg Atorvastatin Calcium (Lipitor) 40 mg PO HS [facility] Last Admin: 06/02/19 21:39 Dose: 40 mg Bisacodyl (Dulcolax) 10 mg PO Q12H PRN PRN Reason: Constipation Bisacodyl (Dulcolax) 10 mg ME Q12H PRN PRN Reason: Constipation Bisacodyl (Dulcolax) 10 mg PO Q12H PRN PRN Reason: Constipation Bisacodyl (Dulcolax) 10 mg ME Q12H PRN PRN Reason: Constipation Carvedilol (Coreg) 6.25 mg PO BID [facility] Dextrose/Water (Dextrose 50%) 25 gm SLOW IVP PRN PRN PRN Reason: PER HYPOGLYCEMIC PROTOCOL Diphenhydramine HCl (Benadryl) 25 mg PO Q6H PRN PRN Reason: Itching & Insomnia or Juan Pablo Karlo Docusate Sodium (Colace) 100 mg PO BID [facility] Last Admin: 06/03/19 08:22 Dose: 100 mg Fentanyl (Sublimaze) 25 mcg SLOW IVP Q2H PRN PRN Reason: Moderate Pain (4-6) Stop: 06/03/19 16:43 Fentanyl (Sublimaze) 50 mcg SLOW IVP Q2H PRN PRN Reason: Severe Pain (7-10) Stop: 06/03/19 16:43 Furosemide (Lasix) 40 mg PO DAILY [facility] Glucagon (Glucagon) 1 mg SC PRN PRN PRN Reason: PER HYPOGLYCEMIC PROTOCOL Guaifenesin/Dextromethorphan (Robitussin Dm) 15 ml PO Q4H PRN PRN Reason: Cough Guaifenesin/Dextromethorphan (Robitussin Dm) 15 ml PO Q4H PRN PRN Reason: Cough Hydralazine HCl (Apresoline) 10 mg SLOW IVP Q6H PRN PRN Reason: To Maintain SBP< 140mmHG Last Admin: 06/02/19 15:50 Dose: 10 mg Dextrose/Water (D5w) 1,000 mls @ 0 mls/hr IV INF PRN PRN Reason: PRN HYPOGLYCEMIC PROTOCOL Insulin Human Regular (Humulin R) 0 units SC .MODERATE SLIDING SC PRN PRN Reason: Moderate Correctional Scale Lisinopril (Zestril) 5 mg PO DAILY [facility] Last Admin: 06/03/19 08:22 Dose: 5 mg Mineral Oil (Fleet Mineral Oil) 133 ml ME DAILYPRN PRN PRN Reason: Constipation Nitroglycerin (Nitrostat) 0.4 mg SL Q5MIN PRN PRN Reason: Chest Pain Ondansetron HCl (Zofran) 4 mg IVP Q6H PRN PRN Reason: Nausea/Vomiting Last Admin: 06/02/19 00:38 Dose: 4 mg Potassium Chloride (K-Dur) 20 meq PO QAM-WM JO[facility] MARTIN Sodium Chloride (Flush - Normal Saline) 10 ml IVF Q12HR JOSE MARTIN Last Admin: 06/03/19 08:23 Dose: 10 ml Zolpidem Tartrate (Ambien) 5 mg PO HSPRN PRN PRN Reason: Insomnia Vital Signs & Weight: Vital Signs Temp Pulse BP Pulse Ox 06/03/19 12:00 99.5 F 06/03/19 08:22 86 134/67 06/03/19 08:00 98.8 F 100 06/03/19 05:00 98.7 F Admit Weight 2.011 oz Weight 128 lb 4.944 oz - Physical Exam General: alert & oriented x3 HEENT: mucus membranes moist Neck: supple neck Cardiac: regular rate and rhythm Lungs: clear to auscultation Neuro: grossly intact Abdomen: active bowel sounds Extremities: 1+ LE edema Skin: clear Musculoskeletal: no pain - Labs Result Diagrams: 06/03/19 03:04 06/03/19 03:30 Troponin/CKMB CK-MB (CK-2) 41.4 ng/mL (0-6.6) H* 05/31/19 20:57 Troponin I 9.118 ng/mL (< 0.028) H* 05/31/19 20:57 - Telemetry Sinus rhythms and dysrhythmias: sinus rhythm - Assessment/Plan Assessment/Plan: 1. CAD 2. S/p CABG 3. LBBB, new 4. Diabetes. PLAN: - Continue BB/ACEI/Statin/ASA - PT once tolerated.
[2019-06-03] MEDS: Atorvastatin Calcium 40 MG TAB PO SCH (19:43)
[2019-06-03] MEDS: Carvedilol 6.25 MG TAB PO SCH (19:43)
[2019-06-04 04:38] LABS: #Lymphocytes 1.1 thou/uL (1.20-3.40); #Monocytes 0.7 thou/uL (0.11-0.59); #Neutrophils 5.3 thou/uL (1.40-6.50); %Basophils 0.1 % (0.0-1.0); %Eosinophils 0.2 % (0.0-10.0); %Lymphocytes 14.7 % (21.0-51.0); %Monocytes 10.4 % (0.0-10.0); %Neutrophils 74.6 % (42.0-75.0); Hemoglobin 8.3 g/dL (12.0-16.0); Mean Corpuscular HGB CONC 32.9 g/dL (32.0-36.0); Mean Corpuscular Hemoglobin 31.5 pg (27.0-31.0); Mean Corpuscular Volume 95.7 fL (78.0-98.0); Mean Platelet Volume 9.8 fL (7.4-10.4); Platelet Count 84 thou/uL (130-400); RBC Distribution Width 13.7 % (11.5-14.5); Red Blood Cell (RBC) Count 2.64 mill/uL (4.20-5.40); White Blood Cell (WBC) Count 7.1 thou/uL (4.8-10.8)
[2019-06-04 04:56] LABS: Anion Gap 10 mmol/L (10-20); BUN (Urea Nitrogen) 28 mg/dL (9.8-20.1); Calc. Creatinine Clearance 43 mL/min (70-130); Calcium 7.9 mg/dL (7.8-10.44); Carbon Dioxide 24 mmol/L (23-31); Chloride 107 mmol/L (98-107); Estimated GFR-MDRD 51; Glucose 102 mg/dL (83-110); Potassium 3.7 mmol/L (3.5-5.1); Sodium 137 mmol/L (136-145)
[2019-06-04] MEDS: HYDROcodone/Acetaminophen 5/325 mg Tablet PO PRN ×3 (06:21→20:36)
[2019-06-04] MEDS: Aspirin Chewable 81 MG TAB PO SCH (08:22)
--- NOTE | 2019-06-04 08:26 | RAD ---
RADIOGRAPH CHEST 1 VIEW: DATE: 06/04/2019 TIME: 4:10 AM HISTORY: 74-year-old female status post CABG COMPARISON: 06/03/2019 FINDINGS: Right subclavian central line. Sternotomy wires. Bilateral pleural effusions with haziness of underly ing lower lung zones. No pneumothorax. No pulmonary edema. Vertically ascending catheter or tube from abdomen with distal tip at midline lower chest. No interval change. IMPRESSION: 1. No interval change. 2. Bilateral pleural effusions.
[2019-06-04] MEDS: Lisinopril 5 MG TAB PO SCH (08:37)
[2019-06-04] MEDS: Docusate 100 MG CAP PO SCH ×2 (08:37→20:38)
[2019-06-04] MEDS: Carvedilol 6.25 MG TAB PO SCH ×2 (08:37→20:36)
[2019-06-04] MEDS: Furosemide 40 MG TAB PO SCH (08:37)
[2019-06-04] MEDS: Potassium Chloride 20 MEQ TAB PO SCH (08:40)
--- NOTE | 2019-06-04 09:12 | PRG ---
DATE OF SERVICE: 06/04/2019 SUBJECTIVE: This morning, she is awake, alert, and responsive. Sitting on the side of the bed, post CABG. OBJECTIVE: VITAL SIGNS: Temperature 98, pulse 76, blood pressure 117/63, respiratory rate , saturations 98%. GENERAL: Denies pain or discomfort. No shortness of breath. CHEST: No wheezing or crackles. CARDIAC: Normal S1, S2. No gallops. ABDOMEN: No masses. LABORATORY DATA: H and H are low 8 and 25. Otherwise, lytes are normal. IMAGING STUDIES: Chest x-ray shows bilateral pleural effusion. IMPRESSION: Coronary artery bypass graft, bilateral pleural effusion. PLAN: Supportive care, PT. Diuretics as prescribed. We will follow. Job ID: [id number]
--- NOTE | 2019-06-04 16:26 | PDOC.CPN ---
- Subjective Date: 06/04/19 Time: 16:24 Interval history: She is doing better. No BM yet but passing gas. Working with PT. - Review of Systems General: denies: fever/chills, weight/appetite/sleep changes, night sweats, fatigue Respiratory: denies: cough, congestion, shortness of breath, exercise intolerance Cardiovascular: denies: chest pain, palpitation, edema, paroxysmal nocturnal dyspnea, orthopnea Gastrointestinal: denies: nausea, vomiting, diarrhea, constipation, abd pain, GI bleeding Musculoskeletal: reports: pain. denies: tenderness, stiffness, swelling, arthritis/arthralgias Neurological: denies: numbness, syncope, seizure, weakness - Objective Allergies/Adverse Reactions: Allergies Allergy/AdvReac Type Severity Reaction Status Date / Time No Known Allergies Allergy Unverified 04/13/13 11:53 Visit Medications: Current Medications Acetaminophen (Tylenol) 650 mg PO Q6H PRN PRN Reason: Headache/Fever Or Mild Pain Hydrocodone Bitart/Acetaminophen ([place] 5/325) 1 tab PO Q4H PRN PRN Reason: Moderate Pain (4-6) Last Admin: 06/04/19 06:21 Dose: 1 tab Hydrocodone Bitart/Acetaminophen ([place] 5/325) 2 tab PO Q4H PRN PRN Reason: Severe Pain (7-10) Al Hydroxide/Mg Hydroxide (Maalox) 30 ml PO Q4H PRN PRN Reason: Indigestion Al Hydroxide/Mg Hydroxide (Maalox) 30 ml PO Q4H PRN PRN Reason: Indigestion Albuterol/Ipratropium (Duoneb) 3 ml NEB T2MT-IM PRN PRN Reason: SHORTNESS OF BREATH Artificial Tears (Tears Naturale) 0 drop EA EYE PRN PRN PRN Reason: Dry Eyes Aspirin (Aspirin Chewable) 81 mg PO DAILY [facility] Last Admin: 06/04/19 08:22 Dose: 81 mg Atorvastatin Calcium (Lipitor) 40 mg PO HS [facility] Last Admin: 06/03/19 19:43 Dose: 40 mg Bisacodyl (Dulcolax) 10 mg PO Q12H PRN PRN Reason: Constipation Bisacodyl (Dulcolax) 10 mg [place] Q12H PRN PRN Reason: Constipation Bisacodyl (Dulcolax) 10 mg PO Q12H PRN PRN Reason: Constipation Bisacodyl (Dulcolax) 10 mg NC Q12H PRN PRN Reason: Constipation Carvedilol (Coreg) 6.25 mg PO BID [facility] Last Admin: 06/04/19 08:37 Dose: 6.25 mg Dextrose/Water (Dextrose 50%) 25 gm SLOW IVP PRN PRN PRN Reason: PER HYPOGLYCEMIC PROTOCOL Diphenhydramine HCl (Benadryl) 25 mg PO Q6H PRN PRN Reason: Itching & Insomnia or Juan Pablo Karlo Docusate Sodium (Colace) 100 mg PO BID [facility] Last Admin: 06/04/19 08:37 Dose: 100 mg Furosemide (Lasix) 40 mg PO DAILY [facility] Last Admin: 06/04/19 08:37 Dose: 40 mg Glucagon (Glucagon) 1 mg SC PRN PRN PRN Reason: PER HYPOGLYCEMIC PROTOCOL Guaifenesin/Dextromethorphan (Robitussin Dm) 15 ml PO Q4H PRN PRN Reason: Cough Guaifenesin/Dextromethorphan (Robitussin Dm) 15 ml PO Q4H PRN PRN Reason: Cough Hydralazine HCl (Apresoline) 10 mg SLOW IVP Q6H PRN PRN Reason: To Maintain SBP< 140mmHG Last Admin: 06/02/19 15:50 Dose: 10 mg Dextrose/Water (D5w) 1,000 mls @ 0 mls/hr IV INF PRN PRN Reason: PRN HYPOGLYCEMIC PROTOCOL Insulin Human Regular (Humulin R) 0 units SC .MODERATE SLIDING SC PRN PRN Reason: Moderate Correctional Scale Lisinopril (Zestril) 5 mg PO DAILY [facility] Last Admin: 06/04/19 08:37 Dose: 5 mg Mineral Oil (Fleet Mineral Oil) 133 ml NC DAILYPRN PRN PRN Reason: Constipation Nitroglycerin (Nitrostat) 0.4 mg SL Q5MIN PRN PRN Reason: Chest Pain Ondansetron HCl (Zofran) 4 mg IVP Q6H PRN PRN Reason: Nausea/Vomiting Last Admin: 06/02/19 00:38 Dose: 4 mg Potassium Chloride (K-Dur) 20 meq PO QAM[facility] Last Admin: 06/04/19 08:40 Dose: 20 meq Sodium Chloride (Flush - Normal Saline) 10 ml IVF Q12HR JOSE MARTIN Last Admin: 06/04/19 08:22 Dose: 10 ml Zolpidem Tartrate (Ambien) 5 mg PO HSPRN PRN PRN Reason: Insomnia Vital Signs & Weight: Vital Signs Temp Pulse Pulse Pulse BP BP BP 06/04/19 14:05 86 117/63 06/04/19 12:58 72 78 106/54 L 111/56 L 06/04/19 12:00 98.7 F 06/04/19 08:37 86 117/63 06/04/19 08:00 98.8 F Pulse Ox Pulse Ox Pulse Ox 06/04/19 14:05 96 06/04/19 12:58 96 98 06/04/19 12:00 06/04/19 08:37 06/04/19 08:00 100 Admit Weight 2.011 oz Weight 127 lb 13.89 oz - Physical Exam General: alert & oriented x3 HEENT: mucus membranes moist Neck: supple neck Cardiac: regular rate and rhythm Lungs: clear to auscultation Neuro: grossly intact Abdomen: active bowel sounds Extremities: 1+ LE edema Skin: clear Musculoskeletal: no pain - Labs Result Diagrams: 06/04/19 04:20 06/04/19 04:20 Troponin/CKMB CK-MB (CK-2) 41.4 ng/mL (0-6.6) H* 05/31/19 20:57 Troponin I 9.118 ng/mL (< 0.028) H* 05/31/19 20:57 - Telemetry Sinus rhythms and dysrhythmias: sinus rhythm - Assessment/Plan Assessment/Plan: 1. CAD 2. S/p CABG 3. LBBB, new 4. Diabetes. PLAN: - Continue BB/ACEI/Statin/ASA - Increase PT as tolerated.
[2019-06-04] MEDS: Atorvastatin Calcium 40 MG TAB PO SCH (20:36)
[2019-06-05 04:36] LABS: #Eosinphils 0.1 thou/uL (0.0-0.7); #Lymphocytes 1.3 thou/uL (1.20-3.40); #Monocytes 0.7 thou/uL (0.11-0.59); #Neutrophils 4.7 thou/uL (1.40-6.50); %Basophils 0.1 % (0.0-1.0); %Lymphocytes 18.3 % (21.0-51.0); %Monocytes 10.9 % (0.0-10.0); %Neutrophils 68.7 % (42.0-75.0); Hemoglobin 8.9 g/dL (12.0-16.0); Mean Corpuscular Hemoglobin 32.2 pg (27.0-31.0); Mean Corpuscular Volume 94.7 fL (78.0-98.0); Mean Platelet Volume 9.9 fL (7.4-10.4); Platelet Count 116 thou/uL (130-400); RBC Distribution Width 13.4 % (11.5-14.5); Red Blood Cell (RBC) Count 2.75 mill/uL (4.20-5.40); White Blood Cell (WBC) Count 6.8 thou/uL (4.8-10.8)
[2019-06-05 04:58] LABS: Anion Gap 10 mmol/L (10-20); BUN (Urea Nitrogen) 33 mg/dL (9.8-20.1); Calc. Creatinine Clearance 43 mL/min (70-130); Calcium 8.2 mg/dL (7.8-10.44); Carbon Dioxide 26 mmol/L (23-31); Chloride 101 mmol/L (98-107); Estimated GFR-MDRD 51; Glucose 97 mg/dL (83-110); Potassium 3.7 mmol/L (3.5-5.1); Sodium 133 mmol/L (136-145)
--- NOTE | 2019-06-05 08:47 | RAD ---
CHEST 1 VIEW: HISTORY: Status post coronary artery bypass graft. COMPARISON: 06/04/2019. FINDINGS: Right-sided central line. Monitor leads overlie the chest. Focal area of calcification changes in t he region of the left axilla. Mild vascular congestion and small pleural effusions. IMPRESSION: Stable chest. No significant new process. POS: [facility]
--- NOTE | 2019-06-05 08:57 | PRG ---
DATE OF SERVICE: 06/05/2019 SUBJECTIVE: This morning, she is doing well. Less short of breath. Unfortunately, chest x-ray still shows significant pleural effusion, left greater than right. She has remained asymptomatic. OBJECTIVE: VITAL SIGNS: Temperature 98, pulse 76, blood pressure 123/60, saturations are 98% on room air, and respirations 18. CHEST: No wheezing or crackles. CARDIAC: Normal S1 and S2. No gallops. ABDOMEN: No masses. LABORATORY DATA: White count of 6000, H and H of 8 and 26. Glucose 117. ASSESSMENT: 1. Status post coronary artery bypass grafting. 2. Bilateral pleural effusion. 3. Diabetes. PLAN: Continue slow diuretics, PT, supportive care. We will follow. Job ID: [id number]
[2019-06-05] MEDS: Aspirin Chewable 81 MG TAB PO SCH (09:23)
[2019-06-05] MEDS: Potassium Chloride 20 MEQ TAB PO SCH (09:23)
[2019-06-05] MEDS: Furosemide 40 MG TAB PO SCH (09:23)
[2019-06-05] MEDS: Lisinopril 5 MG TAB PO SCH ×2 (09:23→20:19)
[2019-06-05] MEDS: Carvedilol 6.25 MG TAB PO SCH ×2 (09:24→20:19)
[2019-06-05] MEDS: Docusate 100 MG CAP PO SCH ×2 (09:24→20:19)
[2019-06-05] MEDS: HYDROcodone/Acetaminophen 5/325 mg Tablet PO PRN (09:30)
[2019-06-05] MEDS: Insulin Regular 300 UNITS/3 ML VIAL SC PRN (12:02)
[2019-06-05] MEDS: Atorvastatin Calcium 40 MG TAB PO SCH (20:19)
[2019-06-06] MEDS: Potassium Chloride 20 MEQ TAB PO SCH (08:30)
[2019-06-06] MEDS: Lisinopril 5 MG TAB PO SCH ×2 (08:30→20:38)
--- NOTE | 2019-06-06 08:31 | PRG ---
DATE OF SERVICE: 06/06/2019 SUBJECTIVE: She remains in the ICU without any distress. OBJECTIVE: VITAL SIGNS: Temperature 98, pulse 74, blood pressure 116/55, saturations on room air, respiratory rate 20. Her I's and O's have been negative. CHEST: Decreased breath sounds. No wheezing. CARDIAC: Normal S1 and S2. No gallops. ABDOMEN: No masses. ASSESSMENT: Coronary artery bypass graft, bilateral pleural effusion, congestive heart failure, diabetes. PLAN: Continue aggressive PT, supportive care, and follow while in the ICU. Job ID: [id number]
[2019-06-06] MEDS: Carvedilol 6.25 MG TAB PO SCH ×2 (08:32→20:38)
[2019-06-06] MEDS: Aspirin Chewable 81 MG TAB PO SCH (08:32)
[2019-06-06] MEDS: Docusate 100 MG CAP PO SCH ×2 (08:33→20:38)
[2019-06-06] MEDS: Furosemide 40 MG TAB PO SCH (08:33)
[2019-06-06] MEDS: HYDROcodone/Acetaminophen 5/325 mg Tablet PO PRN (08:56)
[2019-06-06] MEDS: Atorvastatin Calcium 40 MG TAB PO SCH (20:38)
[2019-06-07] MEDS: Carvedilol 6.25 MG TAB PO SCH ×2 (09:07→20:34)
[2019-06-07] MEDS: Potassium Chloride 20 MEQ TAB PO SCH (09:07)
[2019-06-07] MEDS: Aspirin Chewable 81 MG TAB PO SCH (09:07)
[2019-06-07] MEDS: Docusate 100 MG CAP PO SCH ×2 (09:08→20:33)
[2019-06-07] MEDS: Lisinopril 5 MG TAB PO SCH ×2 (09:08→20:35)
[2019-06-07] MEDS: Furosemide 40 MG TAB PO SCH (09:08)
--- NOTE | 2019-06-07 09:46 | PRG ---
DATE OF SERVICE: SUBJECTIVE: This morning, walking in the escobar. No shortness of breath. OBJECTIVE: VITAL SIGNS: Temperature 98, pulse 118, sats are 90% on room air, blood pressure 137/63. CHEST: No wheezing or crackles. CARDIAC: Normal S1, S2. No gallops. ABDOMEN: No masses. IMPRESSION: Status post CABG, CHF, respiratory failure. PLAN: Pulmonary husain, she is much improved. Continue cardiac care. Pulmonary will follow at a distance. Please call if needed. Job ID: [id number]
[2019-06-07] MEDS: HYDROcodone/Acetaminophen 5/325 mg Tablet PO PRN (15:20)
[2019-06-07] MEDS: Insulin Regular 300 UNITS/3 ML VIAL SC PRN (18:23)
[2019-06-07] MEDS: Atorvastatin Calcium 40 MG TAB PO SCH (20:33)
[2019-06-08] MEDS: HYDROcodone/Acetaminophen 5/325 mg Tablet PO PRN ×2 (09:02→18:15)
[2019-06-08] MEDS: Docusate 100 MG CAP PO SCH ×2 (09:03→20:23)
[2019-06-08] MEDS: Potassium Chloride 20 MEQ TAB PO SCH (09:03)
[2019-06-08] MEDS: Carvedilol 6.25 MG TAB PO SCH ×2 (09:03→20:23)
[2019-06-08] MEDS: Aspirin Chewable 81 MG TAB PO SCH (09:03)
[2019-06-08] MEDS: Furosemide 40 MG TAB PO SCH (09:04)
[2019-06-08] MEDS: Lisinopril 5 MG TAB PO SCH ×2 (09:04→20:25)
--- NOTE | 2019-06-08 11:16 | RAD ---
XR Chest Pa Lat STANDARD HISTORY: Post CABG, edema COMPARISON: 06/15/2019 FINDINGS: Changes of median sternotomy are again seen. There is been interval removal of the right-si ded central venous catheter. There is a small left pleural effusion with adjacent atelectatic change. Focal calcification in the left axilla is again noted. No pneumothoraces are seen.
[2019-06-08 13:41] VITALS: BMI 21.4
--- NOTE | 2019-06-08 15:22 | PRG ---
DATE OF SERVICE: 06/08/2019 SUBJECTIVE: Ms. Kwan is doing well. She was ambulating with a walker. No current complaints. OBJECTIVE: VITAL SIGNS: Blood pressure 119/57, pulse 72, temperature 97.8. LUNGS: Clear to auscultation. HEART: Regular rate and rhythm. ABDOMEN: Soft, nontender, nondistended. EXTREMITIES: No edema. PERTINENT LABORATORY DATA: Hemoglobin 8.9. IMPRESSION: 1. Severe 3-vessel disease. 2. Myocardial infarction. 3. Left bundle-branch block. 4. Cardiomyopathy. 5. Status post bypass surgery. RECOMMENDATIONS: Continue aspirin and Lipitor in addition to carvedilol. The patient on low-dose Lasix. Recommend ZOLL LifeVest given LVEF of 30% to 35%. Discussed with the patient. She is amenable. We will also recommend continuing lisinopril. Once she has LifeVest, it will be okay from my standpoint to discharge home with close outpatient followup. Job ID: [id number]
--- NOTE | 2019-06-08 19:34 | EKG ---
Test Reason : PREOP Blood Pressure : / mmHG Vent. Rate : 081 BPM Atrial Rate : 081 BPM P-R Int : 162 ms QRS Dur : 134 ms QT Int : 470 ms P-R-T Axes : 065 -04 138 degrees QTc Int : 545 ms Normal sinus rhythm Left bundle branch block Abnormal ECG When compared with ECG of 31-MAY-2019 13:18, (Unconfirmed) ST less depressed in Lateral leads T wave inversion less evident in Lateral leads Confirmed by DR. Kat ERICKSON ([id number]) on 06/08/2019 7:34:02 PM Referred By: IMTIAZ Confirmed By:DR. Kat ERICKSON
[2019-06-08] MEDS: Atorvastatin Calcium 40 MG TAB PO SCH (20:24)
[2019-06-09 05:15] LABS: Anion Gap 13 mmol/L (10-20); BUN (Urea Nitrogen) 34 mg/dL (9.8-20.1); Calc. Creatinine Clearance 34 mL/min (70-130); Carbon Dioxide 27 mmol/L (23-31); Chloride 96 mmol/L (98-107); Estimated GFR-MDRD 39; Glucose 104 mg/dL (83-110); Potassium 4.4 mmol/L (3.5-5.1); Sodium 132 mmol/L (136-145)
[2019-06-09] MEDS: Furosemide 40 MG TAB PO SCH (08:24)
[2019-06-09] MEDS: Carvedilol 6.25 MG TAB PO SCH ×2 (08:24→20:10)
[2019-06-09] MEDS: Potassium Chloride 20 MEQ TAB PO SCH (08:24)
[2019-06-09] MEDS: Aspirin Chewable 81 MG TAB PO SCH (08:25)
[2019-06-09] MEDS: Lisinopril 5 MG TAB PO SCH ×2 (08:25→20:09)
[2019-06-09] MEDS: Docusate 100 MG CAP PO SCH ×2 (08:25→20:10)
[2019-06-09] MEDS: HYDROcodone/Acetaminophen 5/325 mg Tablet PO PRN (08:49)
--- NOTE | 2019-06-09 11:49 | PQF ---
CLINICAL DOCUMENTATION IMPROVEMENT CLARIFICATION FORM: ICD-10 Updated PLEASE DO AN ADDENDUM TO THE PROGRESS NOTE WITH ANY DOCUMENTATION UPDATES OR ADDITIONS AND CARRY THROUGH TO DC SUMMARY. THANK YOU. DATE: 06/09/19 ATTN: DR. KITCHEN Please exercise your independent, professional judgment in responding to the clarification form. Clinical indicators are provided on the bottom of this form for your review Please check appropriate box(s): HEART FAILURE: A. ACUITY [ ] Acute [ ] Acute on Chronic [ ] Chronic B. TYPE [ ] Systolic / HFrEF [ ] Diastolic / HFpEF [ ] Combined Systolic / Diastolic [ ] Hypertensive Heart and Kidney disease [ ] Hypertensive Heart Disease [ ] Hypertensive Kidney Disease [ ] Other diagnosis [ ] Unable to determine In addition, please specify: Present on Admission (POA): [ ] Yes [ ] No [ ] Unable to determine For continuity of documentation, please document condition throughout progress notes and discharge summary. Thank You. CLINICAL INDICATORS - SIGNS / SYMPTOMS / LABS / RESULTS AND LOCATION IN EMR PROGRESS NOTE 06/05 (PULMONARY): "CONGESTIVE HEART FAILURE" PROGRESS NOTE 06/07 (CARDIOLOGY): "LIFEVEST GIVEN LVEF 30-35%" PROGRESS NOTE 06/04 (CARDIOLOGY): "CHEST XRAY STILL SHOWS SIGNIFICANT PLEURAL EFFUSION" BNP 05/30: 471.0 RISKS: SEVERE CAD (PROGRESS NOTE06/05) MYOCARDIAL INFARCTION (PROGRESS NOTE 06/05) TREATMENT: COREG (06/02-PRESENT) LISINOPRIL (06/04-PRESENT) LASIX (06/03-PRESENT) ECHOCARDIOGRAM / LIFEVEST (This form is maintained as a part of the permanent medical record) 2014 [employer]. All Rights Reserved [email or web address] Office: [phone] MARCELA
[2019-06-09] MEDS: Atorvastatin Calcium 40 MG TAB PO SCH (20:09)
[2019-06-10] MEDS: Potassium Chloride 20 MEQ TAB PO SCH (09:01)
[2019-06-10] MEDS: HYDROcodone/Acetaminophen 5/325 mg Tablet PO PRN (09:01)
[2019-06-10] MEDS: Aspirin Chewable 81 MG TAB PO SCH (09:02)
[2019-06-10] MEDS: Carvedilol 6.25 MG TAB PO SCH (09:03)
[2019-06-10] MEDS: Lisinopril 5 MG TAB PO SCH (09:03)
[2019-06-10] MEDS: Furosemide 40 MG TAB PO SCH (09:03)
[2019-06-10] MEDS: Docusate 100 MG CAP PO SCH (09:03)
--- NOTE | 2019-06-10 09:48 | PDOC.CPN ---
- Subjective Date: 06/09/19 Time: 13:00 Interval history: No overnight events - Review of Systems General: denies: fever/chills, weight/appetite/sleep changes, night sweats, fatigue Respiratory: denies: cough, congestion, shortness of breath, exercise intolerance Cardiovascular: denies: chest pain, palpitation, edema, paroxysmal nocturnal dyspnea, orthopnea Gastrointestinal: denies: nausea, vomiting, diarrhea, constipation, abd pain, GI bleeding Musculoskeletal: denies: pain, tenderness, stiffness, swelling, arthritis/ arthralgias Neurological: denies: numbness, syncope, seizure, weakness - Objective Allergies/Adverse Reactions: Allergies Allergy/AdvReac Type Severity Reaction Status Date / Time No Known Allergies Allergy Unverified 04/13/13 11:53 Visit Medications: Current Medications Acetaminophen (Tylenol) 650 mg PO Q6H PRN PRN Reason: Headache/Fever Or Mild Pain Last Admin: 06/05/19 20:19 Dose: 650 mg Hydrocodone Bitart/Acetaminophen ([place] 5/325) 1 tab PO Q4H PRN PRN Reason: Moderate Pain (4-6) Last Admin: 06/10/19 09:01 Dose: 1 tab Hydrocodone Bitart/Acetaminophen ([place] 5/325) 2 tab PO Q4H PRN PRN Reason: Severe Pain (7-10) Last Admin: 06/08/19 18:15 Dose: 2 tab Al Hydroxide/Mg Hydroxide (Maalox) 30 ml PO Q4H PRN PRN Reason: Indigestion Albuterol/Ipratropium (Duoneb) 3 ml NEB Q0RN-ON PRN PRN Reason: SHORTNESS OF BREATH Artificial Tears (Tears Naturale) 0 drop EA EYE PRN PRN PRN Reason: Dry Eyes Aspirin (Aspirin Chewable) 81 mg PO DAILY [facility] Last Admin: 06/10/19 09:02 Dose: 81 mg Atorvastatin Calcium (Lipitor) 40 mg PO HS [facility] Last Admin: 06/09/19 20:09 Dose: 40 mg Bisacodyl (Dulcolax) 10 mg PO Q12H PRN PRN Reason: Constipation Last Admin: 06/08/19 14:35 Dose: 10 mg Bisacodyl (Dulcolax) 10 mg NE Q12H PRN PRN Reason: Constipation Carvedilol (Coreg) 6.25 mg PO BID [facility] Last Admin: 06/10/19 09:03 Dose: 6.25 mg Dextrose/Water (Dextrose 50%) 25 gm SLOW IVP PRN PRN PRN Reason: PER HYPOGLYCEMIC PROTOCOL Diphenhydramine HCl (Benadryl) 25 mg PO Q6H PRN PRN Reason: Itching & Insomnia or Juan Pablo Karlo Docusate Sodium (Colace) 100 mg PO BID [facility] Last Admin: 06/10/19 09:03 Dose: 100 mg Furosemide (Lasix) 40 mg PO DAILY [facility] Last Admin: 06/10/19 09:03 Dose: 40 mg Glucagon (Glucagon) 1 mg SC PRN PRN PRN Reason: PER HYPOGLYCEMIC PROTOCOL Guaifenesin/Dextromethorphan (Robitussin Dm) 15 ml PO Q4H PRN PRN Reason: Cough Hydralazine HCl (Apresoline) 10 mg SLOW IVP Q6H PRN PRN Reason: To Maintain SBP< 140mmHG Last Admin: 06/02/19 15:50 Dose: 10 mg Dextrose/Water (D5w) 1,000 mls @ 0 mls/hr IV INF PRN PRN Reason: PRN HYPOGLYCEMIC PROTOCOL Insulin Human Regular (Humulin R) 0 units SC .MODERATE SLIDING SC PRN PRN Reason: Moderate Correctional Scale Last Admin: 06/07/19 18:23 Dose: 2 unit Lisinopril (Zestril) 5 mg PO BID [facility] Last Admin: 06/10/19 09:03 Dose: 5 mg Mineral Oil (Fleet Mineral Oil) 133 ml NE DAILYPRN PRN PRN Reason: Constipation Nitroglycerin (Nitrostat) 0.4 mg SL Q5MIN PRN PRN Reason: Chest Pain Ondansetron HCl (Zofran) 4 mg IVP Q6H PRN PRN Reason: Nausea/Vomiting Last Admin: 06/02/19 00:38 Dose: 4 mg Potassium Chloride (K-Dur) 20 meq PO QAM-WM [facility] Last Admin: 06/10/19 09:01 Dose: 20 meq Sodium Chloride (Flush - Normal Saline) 10 ml IVF Q12HR [facility] Last Admin: 06/10/19 09:03 Dose: 10 ml Zolpidem Tartrate (Ambien) 5 mg PO HSPRN PRN PRN Reason: Insomnia Vital Signs & Weight: Vital Signs Temp Pulse Resp BP Pulse Ox 06/10/19 08:08 98.6 F 66 16 120/56 L 97 06/10/19 08:03 97 06/10/19 05:20 98.4 F 74 16 117/55 L 99 06/10/19 04:19 98 Admit Weight 113 lb 1.554 oz Weight 129 lb 2 oz - Physical Exam General: alert & oriented x3, appears well HEENT: mucus membranes moist Neck: supple neck Cardiac: regular rate and rhythm Lungs: other (clear, decreased BS LLL) Neuro: negative: cranial nerve 2-12 intact, grossly intact, motor function intact, sensory function intact, negative rhomberg, coordination normal, no lateralizing findings, numbness, tingling, weakness, resting tremor, essential tremor, right babinski reflex, left babinski reflex, other Abdomen: unremarkable, active bowel sounds, non-tender Extremities: no cyanosis Skin: clear Musculoskeletal: normal range of motion - Labs Result Diagrams: 06/05/19 03:34 06/09/19 04:20 Troponin/CKMB CK-MB (CK-2) 41.4 ng/mL (0-6.6) H* 05/31/19 20:57 Troponin I 9.118 ng/mL (< 0.028) H* 05/31/19 20:57 - Assessment/Plan Assessment/Plan: 1. CAD s/p CABG 2. s/p HI 3. LBBB 4. DM-II Continue PT. On ASA, bblocker and statin. Plan for d/c soon.
--- NOTE | 2019-06-10 09:49 | PDOC.CPN ---
- Subjective Date: 06/10/19 Time: 09:30 Interval history: no overnight events. Has been discharged by [facility] - Review of Systems General: denies: fever/chills, weight/appetite/sleep changes, night sweats, fatigue Respiratory: denies: cough, congestion, shortness of breath, exercise intolerance Cardiovascular: denies: chest pain, palpitation, edema, paroxysmal nocturnal dyspnea, orthopnea Gastrointestinal: denies: nausea, vomiting, diarrhea, constipation, abd pain, GI bleeding Musculoskeletal: denies: pain, tenderness, stiffness, swelling, arthritis/ arthralgias Neurological: denies: numbness, syncope, seizure, weakness - Objective Allergies/Adverse Reactions: Allergies Allergy/AdvReac Type Severity Reaction Status Date / Time No Known Allergies Allergy Unverified 04/13/13 11:53 Visit Medications: Current Medications Acetaminophen (Tylenol) 650 mg PO Q6H PRN PRN Reason: Headache/Fever Or Mild Pain Last Admin: 06/05/19 20:19 Dose: 650 mg Hydrocodone Bitart/Acetaminophen ([place] 5/325) 1 tab PO Q4H PRN PRN Reason: Moderate Pain (4-6) Last Admin: 06/10/19 09:01 Dose: 1 tab Hydrocodone Bitart/Acetaminophen ([place] 5/325) 2 tab PO Q4H PRN PRN Reason: Severe Pain (7-10) Last Admin: 06/08/19 18:15 Dose: 2 tab Al Hydroxide/Mg Hydroxide (Maalox) 30 ml PO Q4H PRN PRN Reason: Indigestion Albuterol/Ipratropium (Duoneb) 3 ml NEB [id number] PRN PRN Reason: SHORTNESS OF BREATH Artificial Tears (Tears Naturale) 0 drop EA EYE PRN PRN PRN Reason: Dry Eyes Aspirin (Aspirin Chewable) 81 mg PO DAILY [facility] Last Admin: 06/10/19 09:02 Dose: 81 mg Atorvastatin Calcium (Lipitor) 40 mg PO HS [facility] Last Admin: 06/09/19 20:09 Dose: 40 mg Bisacodyl (Dulcolax) 10 mg PO Q12H PRN PRN Reason: Constipation Last Admin: 06/08/19 14:35 Dose: 10 mg Bisacodyl (Dulcolax) 10 mg WV Q12H PRN PRN Reason: Constipation Carvedilol (Coreg) 6.25 mg PO BID [facility] Last Admin: 06/10/19 09:03 Dose: 6.25 mg Dextrose/Water (Dextrose 50%) 25 gm SLOW IVP PRN PRN PRN Reason: PER HYPOGLYCEMIC PROTOCOL Diphenhydramine HCl (Benadryl) 25 mg PO Q6H PRN PRN Reason: Itching & Insomnia or Juan Pablo Karlo Docusate Sodium (Colace) 100 mg PO BID [facility] Last Admin: 06/10/19 09:03 Dose: 100 mg Furosemide (Lasix) 40 mg PO DAILY [facility] Last Admin: 06/10/19 09:03 Dose: 40 mg Glucagon (Glucagon) 1 mg SC PRN PRN PRN Reason: PER HYPOGLYCEMIC PROTOCOL Guaifenesin/Dextromethorphan (Robitussin Dm) 15 ml PO Q4H PRN PRN Reason: Cough Hydralazine HCl (Apresoline) 10 mg SLOW IVP Q6H PRN PRN Reason: To Maintain SBP< 140mmHG Last Admin: 06/02/19 15:50 Dose: 10 mg Dextrose/Water (D5w) 1,000 mls @ 0 mls/hr IV INF PRN PRN Reason: PRN HYPOGLYCEMIC PROTOCOL Insulin Human Regular (Humulin R) 0 units SC .MODERATE SLIDING SC PRN PRN Reason: Moderate Correctional Scale Last Admin: 06/07/19 18:23 Dose: 2 unit Lisinopril (Zestril) 5 mg PO BID [facility] Last Admin: 06/10/19 09:03 Dose: 5 mg Mineral Oil (Fleet Mineral Oil) 133 ml WV DAILYPRN PRN PRN Reason: Constipation Nitroglycerin (Nitrostat) 0.4 mg SL Q5MIN PRN PRN Reason: Chest Pain Ondansetron HCl (Zofran) 4 mg IVP Q6H PRN PRN Reason: Nausea/Vomiting Last Admin: 06/02/19 00:38 Dose: 4 mg Potassium Chloride (K-Dur) 20 meq PO QAM-WM [facility] Last Admin: 06/10/19 09:01 Dose: 20 meq Sodium Chloride (Flush - Normal Saline) 10 ml IVF Q12HR [facility] Last Admin: 06/10/19 09:03 Dose: 10 ml Zolpidem Tartrate (Ambien) 5 mg PO HSPRN PRN PRN Reason: Insomnia Vital Signs & Weight: Vital Signs Temp Pulse Resp BP Pulse Ox 06/10/19 08:08 98.6 F 66 16 120/56 L 97 06/10/19 08:03 97 06/10/19 05:20 98.4 F 74 16 117/55 L 99 06/10/19 04:19 98 Admit Weight 113 lb 1.554 oz Weight 129 lb 2 oz - Physical Exam General: alert & oriented x3, appears well HEENT: mucus membranes moist Neck: supple neck Cardiac: regular rate and rhythm Lungs: clear to auscultation (decreased BS LLL) Neuro: grossly intact Abdomen: unremarkable, active bowel sounds Extremities: no cyanosis Skin: clear, rash Musculoskeletal: normal range of motion - Labs Result Diagrams: 06/05/19 03:34 06/09/19 04:20 Troponin/CKMB CK-MB (CK-2) 41.4 ng/mL (0-6.6) H* 05/31/19 20:57 Troponin I 9.118 ng/mL (< 0.028) H* 05/31/19 20:57 - Telemetry Sinus rhythms and dysrhythmias: sinus rhythm - Assessment/Plan Assessment/Plan: 1. CAD s/p CABG 2. s/p DC 3. LBBB 4. DM-II Stable. Ok for discharge. F/U in 2 weeks with me.
[2019-06-10 12:37] VITALS: TEMP 97.7
[2019-06-10 14:37] VITALS: BP 124/91
--- NOTE | 2019-06-11 16:47 | DIS ---
DATE OF ADMISSION: 05/31/2019 DATE OF DISCHARGE: 06/10/2019 The patient was admitted on 05/30 with a [id number] ND and underwent cardiac catheterization by Dr. Infante. She was found to have three-vessel disease and the following day was taken to the operating room by Dr. Machuca where she underwent grafting to the LAD, second OM, and right coronary artery. Postoperatively, she progressed satisfactorily. She is noted to have hemoglobin of about 8 g and bilateral pleural effusions. She was seen in consultation by Dr. Lopez, who managed her in the intensive care unit. Due to ejection fraction of 30%, she was supplied with LifeVest to take at home. DISCHARGE MEDICATIONS: She will be discharged today on 1. Coreg 6.25 b.i.d.. 2. Lisinopril 5 b.i.d. 3. Lasix 40 every Wednesday, Wednesday, Wednesday. 4. Potassium 10 mEq every Wednesday, Wednesday, Wednesday. 5. An aspirin. 6. She is to resume her atorvastatin 80 mg daily. She is to receive her prescription for hydrocodone. Discharge and followup instructions were given. Job ID: [id number]
--- NOTE | 2019-06-12 00:23 | PQF ---
BENITA ANDERSON JAMES M MD [id number] CLINICAL DOCUMENTATION CLARIFICATION FORM: POST DISCHARGE Addendum to original discharge summary date: not my patient Late entry note date: __ DATE: 06/12/2019 ATTN: Sky Acevedo Please exercise your independent, professional judgment in responding to the clarification form. Clinical indicators are provided on the bottom of this form for your review In your clinical opinion bases on clinical findings below, can you please further specify Acuity of Respiratory Failure if Please check appropriate box(s): [ ] Acute Respiratory Failure [ ] Acute on Chronic Respiratory Failure [ ] Chronic Respiratory Failure With: [ ] Hypoxia [ ] Hypercapnia [ ] Ruled out Respiratory Failure [ y] Other diagnosis none of the above [ ] Unable to determine In addition, please specify: Present on Admission (POA): [ ] Yes [ y ] No [ ] Unable to determine For continuity of documentation, please document condition throughout progress notes and discharge summary. Thank You. CLINICAL INDICATORS - SIGNS / SYMPTOMS / LABS ABG 05/31 Bicarbonate 19.4, pH 7.49, pCO2 25.9, pO2 218.9, O2 sat calc/Measure 99.2, [id number] 15.7, Base excess -2.8, Hct 32.0, Hgb 11.0. Oxyhemoglobin 98.4 Vital signs 05/31 Temp 98, Pulse 70, Resp rate 18, Saturation 90% Consult p1 05/31 Dr Lopez Presented with chest pain and shortness of breath PN p1 06/03 Dr Lopez Chest x-ray shows bilateral Pleural effusion PN p1 06/06 Dr Lopez s/p CABG, CHF, Respiratory Failure RISK FACTORS Consult p1 05/31 - 74-year-old Consult p1 05/31 - HTN Consult p1 05/31 - DM PN p1 05/31 Myocardiac Infarction s/p PTCA Operative report p1 05/31 CAD s/p CABG PN p1 06/05 Congestive heart failure TREATMENTS: ABG ordered 05/31 Admitted to ICU 05/31 Respiratory panel 05/31 3L of Oxygen Chest X-ray 05/31 Pulmonology Consult 05/31 Aaron Henderson (This form is maintained as a part of the permanent medical record) 2014 [email or web address], [employer]. All Rights Reserved [email or web address]
--- NOTE | 2019-06-16 09:19 | PQF ---
MONICABENITA MACHUCACALEB [id number] CLINICAL DOCUMENTATION CLARIFICATION FORM: POST DISCHARGE Addendum to original discharge summary date: ____ Late entry note date: __ DATE: 06/16/19 ATTN: Dr. Machuca Please exercise your independent, professional judgment in responding to the clarification form. Clinical indicators are provided on the bottom of this form for your review Please check appropriate box(s): [ ] Acute Respiratory Failure: ( ) with Hypoxia ( ) with Hypercapnia [ ] Acute On Chronic Respiratory Failure: [ ] with Hypoxia [ ] with Hypercapnia [ ] Chronic Respiratory Failure only [ ] with Hypoxia [ ] with Hypercapnia [ ] Ruled out Respiratory Failure [ x ] Other diagnosis immediate post-op CABG [ ] Unable to determine In addition, please specify: Present on Admission (POA): [ ] Yes [ x ] No [ ] Unable to determine For continuity of documentation, please document condition throughout progress notes and discharge summary. Thank You. CLINICAL INDICATORS - SIGNS / SYMPTOMS / LABS ABG 05/30-Bicarbonate 19.4, pH 7.49, pCO2 25.9, O2 sat/calc/measure 99.2, O2 content 15.7, Base excsss-2.8, HCT 32.0, HGB 11.0, Oxyhemoglobin 98.4 Vital signs 05/31-Temp 98, Pulse 70, Resp rate 18, Saturation 90% Consult p 1-05/31 Dr. Lopez "Presented with chest pain and shortness of breath" PN p1 06/03 Dr. Lopez "chest x-ray shows bilateral Pleural effusion" PN p1 05/27 Dr Lopez "s/p CABG, CHF, Respiratory Failure RISK FACTORS Consult p1 05/31--74 year old Consult p1 05/31-- Hypertension Consult pt1 05/31--DM PN p1 05/31-- Myocardiac Infarction s/p PTCA Operative report p1 05/31--CAD s/p CABG PN p1 06/05--Congestive heart failure TREATMENTS: ABG ordered 05/31 Admitted to ICU 05/31 Respiratory panel 05/31--3L of Oxygen Chest X-ry 05/31 Pulmonology consult 05/31--Dr. Lopez, Aaron Thank you, Theresa Douglsa, [facility] (This form is maintained as a part of the permanent medical record) 2015 [employer], [employer]. All Rights Reserved Theresa [email or web address] [phone] MTDD
== END 2019-06-10 15:46 | disposition home or self-care (01) | DRG 232 ==
LOC: ERS 13:10 → CCU 15:00 → 2NO 06-06 19:27
PROVIDERS: ADMIT Internal Medicine Cardiovascular Disease; ATTEND Internal Medicine Cardiovascular Disease
PROC: 02703ZZ Dilation of Coronary Artery, One Artery, Percutaneous Approach (ICD-10-PCS; 2019-05-31)
PROC: 4A023N7 Measurement of Cardiac Sampling and Pressure, Left Heart, Percutaneous Approach (ICD-10-PCS; 2019-05-31)
PROC: B2111ZZ Fluoroscopy of Multiple Coronary Arteries using Low Osmolar Contrast (ICD-10-PCS; 2019-05-31)
PROC: 3E033PZ Introduction of Platelet Inhibitor into Peripheral Vein, Percutaneous Approach (ICD-10-PCS; 2019-05-31)
PROC: 021109W Bypass Coronary Artery, Two Arteries from Aorta with Autologous Venous Tissue, Open Approach (ICD-10-PCS; principal; 2019-06-01)
PROC: 02100Z9 Bypass Coronary Artery, One Artery from Left Internal Mammary, Open Approach (ICD-10-PCS; 2019-06-01)
PROC: 06BP4ZZ Excision of Right Saphenous Vein, Percutaneous Endoscopic Approach (ICD-10-PCS; 2019-06-01)
PROC: 5A1221Z Performance of Cardiac Output, Continuous (ICD-10-PCS; 2019-06-01)
PROC: 30233N1 Transfusion of Nonautologous Red Blood Cells into Peripheral Vein, Percutaneous Approach (ICD-10-PCS; 2019-06-01)
DX: I21.4 Non-ST elevation (NSTEMI) myocardial infarction (principal); I42.9 Cardiomyopathy, unspecified; E11.9 Type 2 diabetes mellitus without complications; M19.90 Unspecified osteoarthritis, unspecified site; I25.10 Atherosclerotic heart disease of native coronary artery without angina pectoris; I44.7 Left bundle-branch block, unspecified; Z96.642 Presence of left artificial hip joint; I50.9 Heart failure, unspecified; I11.0 Hypertensive heart disease with heart failure; Z79.84 Long term (current) use of oral hypoglycemic drugs; Z79.899 Other long term (current) drug therapy; Z79.82 Long term (current) use of aspirin; Z28.21 Immunization not carried out because of patient refusal
CPT/HCPCS: 36415; 36416; 36430; 71045; 71046; 76942; 80048; 80053; 82550; 82553; 82805; 83036; 83690; 83880; 84484; 85025; 85347; 85379; 85610; 85730; 86850; 86900; 86901; 92920; 93005; 93010; 93306; 93458; 93798; 94002; 94003; 94150; 96374; 96375; 99152; 99153; C1725; C1769; C1887; J0153; J0360; J1100; J1265; J1644; J1815; J1940; J2001; J2250; J2260; J2270; J2405; J2440; J2550; J2704; J2720; J3010; J3246; J3370; J3475; J3480; J3490; P9016; P9045; P9047; Q9967; S0017; S0028

== ENCOUNTER 2020-01-04 07:28 | Outpatient (CLI) | payer MEDICARE, OTHER ==
--- NOTE | 2020-01-04 11:06 | RAD ---
2 VIEW CHEST: Date: 01/04/2020 HISTORY: Preop. COMPARISON: 06/08/2019. FINDINGS: Lung orellana appear clear. Heart size normal. Postop sternotomy changes are noted. Vascular markings n ormal. Stippled soft tissue calcifications lateral chest wall again noted. Aortic calcification is again see n. IMPRESSION: No acute process. POS: AGW
[2020-01-04 11:18] LABS: Hemoglobin 9.5 g/dL (12.0-16.0); Mean Corpuscular HGB CONC 32.9 g/dL (32.0-36.0); Mean Corpuscular Hemoglobin 33.6 pg (27.0-31.0); Mean Platelet Volume 8.7 fL (7.4-10.4); Platelet Count 181 thou/uL (130-400); RBC Distribution Width 12.2 % (11.5-14.5); Red Blood Cell (RBC) Count 2.82 mill/uL (4.20-5.40); White Blood Cell (WBC) Count 7.2 thou/uL (4.8-10.8)
[2020-01-04 11:55] LABS: Anion Gap 14 mmol/L (10-20); BUN (Urea Nitrogen) 21 mg/dL (9.8-20.1); Calc. Creatinine Clearance 0 mL/min (70-130); Carbon Dioxide 20 mmol/L (23-31); Chloride 109 mmol/L (98-107); Estimated GFR-MDRD 39; Glucose 110 mg/dL (83-110); Potassium 4.4 mmol/L (3.5-5.1); Sodium 139 mmol/L (136-145)
[2020-01-04 17:33] LABS: SARS-CoV-2 MS2 Positive; SARS-CoV-2 N Gene Negative; SARS-CoV-2 S Gene Negative; SARS-CoV-2 by NAA Not Detected (NotDetected); SARS-CoV-2 orf1ab Negative
--- NOTE | 2020-01-04 18:09 | EKG ---
Test Reason : Blood Pressure : / mmHG Vent. Rate : 072 BPM Atrial Rate : 072 BPM P-R Int : 172 ms QRS Dur : 128 ms QT Int : 472 ms P-R-T Axes : 079 025 046 degrees QTc Int : 516 ms Normal sinus rhythm Non-specific intra-ventricular conduction block Nonspecific ST-T changes Abnormal ECG No previous ECGs available Confirmed by DR. Nat ALVARADO (3) on 01/04/2020 6:09:36 PM Referred By: ASHISH Confirmed By:DR. Nat ALVARADO
== END 2020-01-04 07:29 | disposition home or self-care (01) ==
LOC: LABBT 07:28
PROVIDERS: ATTEND Thoracic Surgery (Cardiothoracic Vascular Surgery)
DX: Z01.818 Encounter for other preprocedural examination (principal); Z20.828 Contact with and (suspected) exposure to other viral communicable diseases; I65.29 Occlusion and stenosis of unspecified carotid artery
CPT/HCPCS: 71046; 80048; 85027; 93005; U0003; 87635; 93010

== ENCOUNTER 2020-01-04 09:00 | Inpatient (IN) | payer MEDICARE ==
[2020-01-04 11:30] VITALS: BMI 22.6
--- NOTE | 2020-01-08 11:03 | HP ---
CHIEF COMPLAINT: Asymptomatic carotid bruit. HISTORY OF PRESENT ILLNESS: The patient is a 74-year-old woman who in May of this year was found to have a bundle branch block when she presented with chest tightness, shortness of breath, and nausea. She was found to have severe three vessel coronary disease and decreased LV function. She had an asymptomatic carotid bruit noted at that time. She underwent three vessel coronary bypass procedure and had a somewhat slow recovery. During the intervening months, she has remained asymptomatic with respect to her carotids. She has not had any recurrence of any chest pain or shortness of breath. Ultrasonography showed moderate plaque burden on the right with internal carotid velocities of 118, 121, and 114, and common carotid velocities of 95, 68 and 112 for a ratio of 1.77. On the left side, however, she had a very heavy plaque burden associated with turbulence, spectral broadening and a marked step-up in velocities. Her internal carotid velocity peaked at 325 cm/second and she had a ratio of 4.07. CTA to confirm this was aborted due to a low estimated GFR and after discussing options with her, I have recommended and she has agreed to left carotid endarterectomy based on the available findings. PAST MEDICAL HISTORY: Significant for hypertension and diabetes. SURGICAL HISTORY: Significant for her coronary artery bypass procedure. MEDICATIONS: 1. Baby aspirin a day. 2. Coreg 6.25 mg b.i.d. 3. Lisinopril 5 mg a day. 4. Lasix 40 mg Wednesday, Wednesday, and Wednesday. 5. Lipitor 80 mg a day. 6. Potassium 80 mEq on Wednesday, Wednesday and Wednesday. ALLERGIES: SHE DENIES ANY MEDICAL ALLERGIES. SOCIAL HISTORY: She does not smoke. FAMILY HISTORY: Significant for diabetes, coronary disease and hypertension in her father and diabetes in her mother. Her mother also had hypertension and had a stroke. REVIEW OF SYSTEMS: Negative for any chest pain, any shortness of breath, any eye, speech, facial, or extremity symptoms consistent with TIAs. PHYSICAL EXAMINATION: GENERAL: She is a small statured woman, 5 feet tall, 120 pounds. VITAL SIGNS: Heart rate 68, blood pressure 138/51. HEENT: She has no xanthelasma. No JVD. She has soft bilateral carotid bruits. CHEST: Clear to auscultation. She has regular rate and rhythm. She has a well-healed surgical scar on her chest and incisions on both extremities from vein harvest for the bypass procedure. EXTREMITIES: She has some deformities on fingers of either hand consistent with some arthritis. Her radial pulses are somewhat difficult to feel. The femoral pulses are palpable. I was not able to appreciate popliteal pulses or posterior tibial pulses on either side. She has a faint right dorsalis pedis and nonpalpable left dorsalis pedis. She has no dependent edema. NEUROLOGIC: Cranial nerves 2 through 12 are grossly intact as is upper and lower extremity strength. Her ultrasound findings were as above. IMPRESSION AND PLAN: Asymptomatic high-grade left carotid stenosis. We will plan on left carotid endarterectomy. Job ID: [id number]
[2020-01-09] MEDS ORDERED: Heparin 5,000 UNITS/ML VIAL ONE (06:35)
[2020-01-09] MEDS ORDERED: Protamine Sulfate 50 MG/5 ML VIAL ONE (06:35)
[2020-01-09] MEDS ORDERED: Fentanyl 100 MCG/2 ML VIAL ONE ×2 (06:57→10:46)
[2020-01-09] MEDS ORDERED: Midazolam HCl 2 mg/2 ml Vial ONE (06:57)
[2020-01-09] MEDS ORDERED: Sodium Chloride 0.9% 100 ML ONE (06:59)
[2020-01-09] MEDS ORDERED: CEFAZOLIN 1 GM VIAL ONE (06:59)
[2020-01-09] MEDS ORDERED: Ondansetron PF 4 MG/2 ML Vial IVP PRN (07:47)
[2020-01-09] MEDS ORDERED: Acetaminophen 325 MG TAB PO PRN (07:47)
[2020-01-09] MEDS ORDERED: Promethazine HCl 25 MG/ML VIAL PR PRN (07:47)
[2020-01-09] MEDS ORDERED: Fentanyl 100 MCG/2 ML VIAL SLOW IVP PRN ×2 (07:47)
[2020-01-09] MEDS ORDERED: Insulin Regular 300 UNITS/3 ML VIAL SC PRN (07:47)
[2020-01-09] MEDS ORDERED: Promethazine HCl 25 MG/ML VIAL IM PRN (07:47)
[2020-01-09] MEDS ORDERED: traMADol HCl 50 MG TAB PO PRN ×2 (07:47)
[2020-01-09] MEDS ORDERED: Loratadine 10 MG TAB PO PRN (08:12)
[2020-01-09] MEDS ORDERED: Aspirin Chewable 81 MG TAB PO SCH ×2 (09:00)
[2020-01-09] MEDS ORDERED: Ketorolac Tromethamine 30 MG/ML VIAL ONE (09:40)
[2020-01-09] MEDS ORDERED: Dexamethasone 20 MG/5 ML VIAL ONE (09:40)
[2020-01-09] MEDS ORDERED: Rocuronium Bromide 10 MG/ML (10ML VIAL) ONE (09:40)
[2020-01-09] MEDS ORDERED: PROPOFOL 200 MG/20 ML VIAL ONE (09:40)
[2020-01-09] MEDS ORDERED: Lidocaine 1% PF 5 ML VIAL ONE (09:40)
[2020-01-09] MEDS ORDERED: Glycopyrrolate 0.2 MG/ML 5 ML SYRINGE ONE (09:40)
[2020-01-09] MEDS ORDERED: Ondansetron PF 4 MG/2 ML Vial ONE (09:40)
[2020-01-09] MEDS ORDERED: EPHEDRINE 25 MG/5 ML SYRINGE ONE (09:40)
[2020-01-09] MEDS ORDERED: Labetalol HCl 100 MG/20 ML VIAL ONE (09:40)
[2020-01-09] MEDS ORDERED: Ondansetron HCl/PF 4 MG/2 ML Vial IVP PRN (09:44)
[2020-01-09] MEDS: Sodium Chloride 0.9% 1,000 ML IV SCH ×2 (11:42→17:22)
[2020-01-09] MEDS: Carvedilol 6.25 MG TAB PO SCH ×2 (11:43→19:53)
[2020-01-09] MEDS ORDERED: Enalaprilat Dihydrate 1.25 MG/ML VIAL SLOW IVP PRN (11:45)
[2020-01-09] MEDS ORDERED: Labetalol HCl 100 MG/20 ML VIAL SLOW IVP SCH (13:00)
[2020-01-09] MEDS ORDERED: niCARdipine 50 MG in Sodium Chloride 0.9% 250 ML 230 ML IV SCH (13:00)
--- NOTE | 2020-01-09 17:10 | OP ---
DATE OF PROCEDURE: 01/09/2020 PROCEDURE PERFORMED: Left carotid endarterectomy. PREOPERATIVE DIAGNOSIS: Left carotid stenosis. POSTOPERATIVE DIAGNOSIS: Left carotid stenosis. ANESTHESIA: General endotracheal anesthesia. INDICATIONS: The patient is a 74-year-old woman, found to have an asymptomatic carotid bruit at the time that she presented with myocardial infarction and required coronary artery bypass grafting. Ultrasonography demonstrated a fairly heavy plaque burden in both carotids, more so on the left than on the right. On the right, she had reasonably normal velocities, but she had significantly elevated velocities in the left internal carotid artery, consistent with a high-grade carotid stenosis. Renal function made contrast studies problematic, and after discussing treatment options with her, opted to go to the operating room for endarterectomy based on the available findings. FINDINGS: Calcified plaque at the carotid bulb and proximal internal carotid with about an 80% stenosis of the origin of the internal carotid. There was good ICA backbleeding. Pre-shunt clamp time was 5 minutes. Shunt time was 19 minutes. Post-shunt clamp time was 3 minutes. DESCRIPTION OF PROCEDURE: After informed consent was obtained, the patient was taken to the operating room and placed in supine position on the operating table. After the induction of general anesthesia, the patient's neck was extended and rotated towards the right. Her left neck was then prepped and draped in sterile fashion. An oblique incision was made in the skin crease on the left neck using a scalpel and electrocautery. The dissection was carried through the subcutaneous tissue and platysma, anteromedial to the sternocleidomastoid mastoid muscle and internal jugular vein. The common carotid artery was dissected free from its sheath and the vagus nerve and looped with a vessel loop. The dissection was carried cephalad, ligating and dividing the facial vein. The hypoglossal nerve was identified. The very tiny sling vessels were identified after they had been divided, they were clipped to achieve hemostasis. Use of the cautery in that area was avoided. The external carotid was looped with a vessel loop and the internal carotid artery was mobilized, freeing the carotid system from the vagus to allow for adequate control of the internal carotid well beyond the palpable plaquing. After adequate circulation time of heparin, the internal carotid, common carotid, and external carotid systems were sequentially occluded. A longitudinal arteriotomy was made in the distal common carotid artery and extended proximally and distally with Zapata scissors. An endarterectomy plane was developed at the bulb with the tip of the scissors and extended with an elevator. Plaque was transected at the common carotid level with Zapata scissors, everted from the external carotid and broken off distally in the internal carotid. The endarterectomy bed was inspected after forcefully irrigating it. The proximal transection point was clean and the distal feather was smooth. An intraluminal carotid shunt was inserted first distally in the internal carotid and then proximally in the common carotid, aspirating on the side port of the shunt before allowing antegrade flow through it into the internal carotid system. The endarterectomy bed was then serially irrigated, inspected, and debrided until no more mobile debris remained. The arteriotomy was then primarily closed using running 6-0 Prolene suture taken from either apex of the arteriotomy with about a centimeter of arteriotomy left to sew at the common carotid level, the shunt was clamped and removed, and vascular control was reestablished on the common carotid and on the internal carotid at its origin with vessel loops. The remaining arteriotomy was sewn. The vessels were forward and back bled to allow for flushing of any air or residual debris out the arteriotomy or into the external carotid system. The suture line was secured and antegrade flow was allowed first into the external carotid and then into the internal carotid. Two discrete bleeding points along the suture line at the distal common carotid level were easily controlled with [id number] Prolene sutures and the wound was packed off. After several minutes, the packing was removed and the wound inspected. Hemostasis was adequate without the reversal of heparin. The platysma was then reapproximated with a running 3-0 Vicryl and the skin was closed with a running 5-0 Vicryl subcuticular suture and Steri-Strips. A dressing was applied. The patient was awakened and extubated in the operating room, moving all extremities and able to speak. The patient was then transported to the recovery area in good condition. Job ID: [id number]
[2020-01-09 19:55] VITALS: BP 142/83
[2020-01-09] MEDS ORDERED: Atorvastatin Calcium 40 MG TAB PO SCH (21:00)
[2020-01-09] MEDS ORDERED: Lisinopril 5 MG TAB PO SCH (21:00)
[2020-01-10 04:29] VITALS: TEMP 97.8
[2020-01-10] MEDS: Sodium Chloride 0.9% 1,000 ML IV SCH (05:47)
[2020-01-10] MEDS ORDERED: Potassium Chloride 10 MEQ TAB PO SCH (08:00)
[2020-01-10] MEDS ORDERED: Furosemide 40 MG TAB PO SCH (09:00)
--- NOTE | 2020-01-10 23:45 | DIS ---
DATE OF ADMISSION: 01/09/2020 DATE OF DISCHARGE: 01/10/2020 PRINCIPAL DIAGNOSIS: Left carotid stenosis. SECONDARY DIAGNOSES: 1. Hypertension. 2. Diabetes mellitus. 3. Coronary artery bypass grafting. 4. Peripheral vascular disease. 5. Renal insufficiency. PROCEDURES PERFORMED: Left carotid endarterectomy on 01/09/2020. HISTORY OF PRESENT ILLNESS AND HOSPITAL COURSE: The patient is a 74-year-old woman with an asymptomatic carotid bruit appreciated during an evaluation for coronary artery bypass grafting after she presented with myocardial infarction. She was somewhat slow to recover from her bypass surgery and had some transient worsening of her baseline renal insufficiency. Ultrasonography demonstrated heavy plaque burden in both carotid systems, worse on the left than on the right. The left was associated with high velocities peaking at 325 cm/second with a ratio of 4.07. On the right side, she had essentially normal velocities and ratio 1.77. CTA was deferred because of borderline estimated GFR and after discussing options with her, she was admitted electively for endarterectomy. Her endarterectomy per se was uneventful. Immediately postoperatively, she was markedly hypertensive. Hydralazine was not available, but she had marginal if any response to p.r.n. doses of Vasotec and labetalol, but was quite sensitive to Cardene. 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 On the morning of postoperative day #1, she had good heart rate and blood pressure control on oral medications. Her voice was a little bit raspy, but not truly hoarse, and she had not had any coughing or problems with swallowing or breathing. Her tongue was midline. She had a fair amount of bruising associated with her incision (there has been a significant amount of skin edge bleeding at the time of wound closure), but it was associated with minimal swelling. She was able to move all extremities normally and her smile was symmetric. She is now being discharged home to resume her home medications, which include aspirin. Job ID: [id number]
== END 2020-01-10 08:53 | disposition home or self-care (01) | DRG 39 ==
LOC: SURG A 01-09 06:20 → CCU 01-09 11:22
PROVIDERS: ADMIT Thoracic Surgery (Cardiothoracic Vascular Surgery); ATTEND Thoracic Surgery (Cardiothoracic Vascular Surgery)
PROC: 03CL0ZZ Extirpation of Matter from Left Internal Carotid Artery, Open Approach (ICD-10-PCS; principal; 2020-01-09)
PROC: 03CJ0ZZ Extirpation of Matter from Left Common Carotid Artery, Open Approach (ICD-10-PCS; 2020-01-09)
DX: I65.22 Occlusion and stenosis of left carotid artery (principal); I10 Essential (primary) hypertension; I25.10 Atherosclerotic heart disease of native coronary artery without angina pectoris; E11.51 Type 2 diabetes mellitus with diabetic peripheral angiopathy without gangrene; N28.9 Disorder of kidney and ureter, unspecified; Z95.1 Presence of aortocoronary bypass graft; I25.2 Old myocardial infarction; Z79.899 Other long term (current) drug therapy; Z79.82 Long term (current) use of aspirin; Z79.84 Long term (current) use of oral hypoglycemic drugs
CPT/HCPCS: 36416; 86850; 86900; 86901; J0690; J1100; J1642; J1644; J1815; J1885; J2250; J2405; J2704; J2720; J3010; J3490; J7050

== ENCOUNTER 2023-09-02 14:27 | Outpatient (CLI) | payer OTHER | END 2023-09-02 14:28 | disposition home or self-care (01) | LOC: BICCT 14:27 | PROVIDERS: ATTEND Thoracic Surgery (Cardiothoracic Vascular Surgery) | DX: I65.21 Occlusion and stenosis of right carotid artery (principal) | CPT/HCPCS: 70490 ==